=== PATIENT | male | born 1940 | race Caucasian/White ===

== ENCOUNTER → 2017-12-01 | Outpatient (CLI) | payer MEDICARE ==
[~2017-12-01] MED LIST: ALLO300T2 PO; ASPI81TA23 PO; ASPI81TA82 PO; CARV12.52 PO; CHOLMIS5 XX; CLOP75TA PO; COLC0.6T PO; COQ-100C5 PO; HYDR-3366 PO; LORT5TAB PO; NEXI40CA PO; PRAV40TA PO; TRIA37.5 PO; [UNRECOGNIZED DRUG - OTHER]
[2017-12-01 12:50] LABS: AUTOMATED NEUTROPHIL # 6.2 TH/MM3 (1.8-7.7); BASOPHIL # 0.1 TH/MM3 (0-0.2); BASOPHIL % 1.2 % (0.0-2.0); EOSINOPHIL # 0.4 TH/MM3 (0-0.4); EOSINOPHIL % 3.9 % (0.0-4.0); HEMATOCRIT 48.4 % (39.0-51.0); HEMOGLOBIN 16.3 GM/DL (13.0-17.0); LYMPH % 21.1 % (9.0-44.0); LYMPHOCYTE # 2.1 TH/MM3 (1.0-4.8); MEAN CELL VOLUME 91.5 FL (80.0-100.0); MEAN CORPUSCULAR HEMOGLOBIN 30.8 PG (27.0-34.0); MEAN CORPUSCULAR HGB CONC 33.7 % (32.0-36.0); MEAN PLATELET VOLUME 9.3 FL (7.0-11.0); MONO % 9.8 % (0.0-8.0); PLATELET COUNT 230 TH/MM3 (150-450); RED BLOOD COUNT 5.29 MIL/MM3 (4.50-5.90); RED CELL DISTRIBUTION WIDTH 14.6 % (11.6-17.2); WHITE BLOOD COUNT 9.8 TH/MM3 (4.0-11.0)
[2017-12-01 12:56] LABS: BILIRUBIN, URINE NEG (NEG); BLOOD, URINE NEG (NEG); GLUCOSE,URINE NEG (NEG); HYALINE CAST, URINE 1 /lpf (RARE); KETONE, URINE NEG (NEG); MUCUS URINE FEW /lpf (OCC); NITRITE,URINE NEG (NEG); URINE COLOR YELLOW (YELLW/STRAW); URINE LEUKOCYTE ESTERASE NEG (NEG)
[2017-12-01 12:58] LABS: PROTHROMBIN TIME - PATIENT 10.3 SEC (9.8-11.6)
[2017-12-01 13:58] LABS: AST (GOT) 35 U/L (15-37); BICARBONATE 24.9 MEQ/L (21.0-32.0); BLOOD UREA NITROGEN 17 MG/DL (7-18); CALCIUM 9.5 MG/DL (8.5-10.1); CHLORIDE 107 MEQ/L (98-107); CREATININE 1.14 MG/DL (0.60-1.30); GLOMERULAR FILTRATION RATE 62 ML/MIN (>89); GLUCOSE,FASTING 140 MG/DL (74-99); SODIUM (NA) 142 MEQ/L (136-145)
[2017-12-01 14:03] LABS: ALKALINE PHOSPHATASE 65 U/L (45-117); ALT (GPT) 53 U/L (12-78); TOTAL BILIRUBIN ADULT 0.4 MG/DL (0.2-1.0); TOTAL PROTEIN 8.2 GM/DL (6.4-8.2)
--- NOTE | 2017-12-01 22:50 | EKG ---
Date Performed: 12/01/2017 Time Performed: 12:15:00 PTAGE: 77 years EKG: Sinus rhythm POSSIBLE LEFT ATRIAL ENLARGEMENT LEFT ANTERIOR FASCICULAR BLOCK NONSPECIFIC T-WAVE ABNORMALITY ABNOR MAL ECG NO PREVIOUS TRACING DOCTOR: Hernan Simmons Interpretating Date/Time 12/01/2017 22:49:19
== END ==
LOC: CPRE 11:48
PROVIDERS: ATTEND Neurological Surgery
DX: Z01.812 Encounter for preprocedural laboratory examination (principal); Z01.810 Encounter for preprocedural cardiovascular examination; M48.062 Spinal stenosis, lumbar region with neurogenic claudication; M43.10 Spondylolisthesis, site unspecified; R94.31 Abnormal electrocardiogram [ECG] [EKG]; Z79.01 Long term (current) use of anticoagulants
CPT/HCPCS: 36415; 80053; 81001; 85025; 85610; 85730; 87640; 87641; 93005

== ENCOUNTER → 2017-12-03 | Day surgery (SDC) | payer MEDICARE ==
--- NOTE | 2017-12-02 18:36 | MH ---
cc: Merrill Kennedy MD, Rohit S PA [place],Alem Riojas MD, Ashraf S MD DATE OF ADMISSION: 12/03/2017 ADMITTING DIAGNOSIS: Lumbar spinal stenosis. HISTORY OF PRESENT ILLNESS: This is a 77-year-old male who presented to our office for an evaluation of low back pain and leg pain. He states that his pain started about 2-1/2 years ago and he was moving down to [place] and was unloading a [employer] trailer when he initially hurt his back. He states he had to do the move again and the pain was worse after the second time. He switched his insurance and was able to have more providers to choose from in his network and had coverage in [place] and he saw [facility] who obtained an MRI of his lumbar spine. He states he has previously been told he needed right hip surgery from an orthopedist and then saw an Orthopedic Clinic here in [place] who said it was not his hip and felt that it was coming from his back. He states he was referred to physical therapy, which made it worse, and he states that the pain got to the point where he can hardly walk. The pain radiates from the back into the posterior lower extremities, right more than the left, down to the lateral calf but not the feet. He sleeps on his right side and gets cramps in his calves. He has some tingling in his feet bilaterally. He states his feet hurt all the time. It feels like a squeezing type of pain. He states if he is sitting or lying down this helps with his pain. He states he cannot stand for more than 5 minutes. He states his legs can give out very quickly on him and he has to find a stool to sit down. He has had trigger point injections with his primary care physician, which only helped for a few hours. He has not been to pain management. He states he has urinary frequency and urgency and if he does not get to the bathroom in time, he does have some dribbling. He denies any reanna urinary incontinence. PAST MEDICAL HISTORY: Significant for abdominal aortic aneurysm, anxiety and depression, skin cancer, hyperlipidemia, sleep apnea, epigastric hernia repair, tonsillectomy, knee surgery in 2011 and 2012. MEDICATIONS: 1. Allopurinol 300 mg p.o. daily. 2. Aspirin 81 mg p.o. daily. This was placed on hold prior to surgical intervention. 3. Carvedilol 6.25 mg p.o. daily. 4. Plavix 75 mg p.o. daily. This was placed on hold prior to surgical intervention. 5. Colchicine 0.6 mg. 6. CoQ 10 p.o. daily. 7. [place] p.o. daily. 8. Nexium p.o. daily. 9. Pravastatin 40 mg p.o. daily. 10. Triamterene 37.5/Hydrochlorothiazide 25 mg p.o. daily. ALLERGIES: ALLERGIC TO LISTED PENICILLIN. FAMILY HISTORY: Father has a history of COPD. Mother has a history of cancer. Brother has a history of aortic aneurysm. SOCIAL HISTORY: He rarely drinks alcohol. He drinks a moderate amount of caffeine with coffee. He is a former smoker with 40 pack years. No illicit drug use. REVIEW OF SYSTEMS: CONSTITUTIONAL: He denies any fever or chills. EARS, NOSE AND THROAT: No pharyngitis, exudates or bloody draining from his nose CARDIOVASCULAR: Denies any chest pain or palpitations. RESPIRATORY: No cough or shortness of breath. GASTROINTESTINAL: No nausea, vomiting, abdominal pain. GENITOURINARY: No dysuria or hematuria. MUSCULOSKELETAL: Positive for low back pain. INTEGUMENTARY: No rashes or pruritus. No difficulty with speech or memory PSYCHIATRIC: Positive for anxiety and depression symptoms. ENDOCRINE: No polyuria or polydipsia. HEMATOLOGIC: Positive for bleeding tendencies related to Plavix and aspirin. PHYSICAL EXAMINATION: HEENT: Head is normocephalic, atraumatic. NECK: Supple. No carotid bruits heard on auscultation. LUNGS: Clear to auscultation bilaterally. HEART: Regular rate and rhythm, right sternal border heart murmur 2/6. ABDOMEN: Soft, positive bowel sounds. EXTREMITIES: No cyanosis, erythema. MUSCULOSKELETAL: He has 5/5 strength in the lower extremities. He ambulates without any assistive device, although he cannot walk more than 50 feet and uses a motorized wheelchair for longer distances. NEUROLOGIC: He is awake, alert, and oriented. Cranial nerves 2-12 are grossly intact. Her speech is fluent. Comprehension is good. Reflexes decreased in the left patella, otherwise 2+ in the lower extremities. He prefers to lean forward with walking and relates that his feet tend to drag when walking. ASSESSMENT: A 76-year-old obese male with a chronic history of low back pain with severe neurogenic claudication symptoms which has progressively gotten worse. He is unable to walk even half a block and states walking more than 50 to 60 feet is very difficult for him with worsening back pain and lower extremity pain and weakness in his legs. He has failed conservative treatment measures including physical therapy. MRI of the lumbar spine reveals severe L4/L5 spinal stenosis from a combination of disk protrusion and facet and ligamentum flavum hypertrophy along with grade 1 spondylolisthesis. PLAN: The patient and his are requesting surgical intervention, since he is very debilitated with his activity status and restrictions. We have discussed an L4/L5 decompressive laminectomy as well as the risks, benefits, alternatives, and recovery time in great detail with the patient and his . We have discussed the risks involved with surgery include, but not limited to bleeding, infection, muscle weakness, voice hoarseness, difficulty swallowing, heart attack, stroke, blood clots, nonfusion, scar tissue formation, among others. We have obtained cardiac clearance. He also understands that should his spondylolisthesis worsen in the future, he may require a stabilization type of procedure, which he wants to avoid at this point. No guarantees were made to the patient as to the results of the procedure. We have discussed the procedure and all of his questions were answered to his satisfaction. He is requesting that we proceed fully understanding the procedure as well as the risks involved and he is therefore scheduled accordingly. MD Adebayo Adorno PA RKK/ , 05:42 PM , 06:34 PM
[~2017-12-03] VITALS: Ht 171.4 cm; Wt 113.6 kg
[~2017-12-03] MED LIST changes: +APREPITANT 40 MG CAP ONE; -ASPI81TA82 PO; +BUPIVACAINE/EPINEPHRINE 0.5% PF 30 ML VIAL ONE; +CHLORHEXIDINE GLUCONATE 2 % 1 PACK (2 CLOTHS) TOPICAL PRN; -CHOLMIS5 XX; +DEXAMETHASONE SOD PHOS 4 MG/ML VIAL IV ONE; +DO NOT ADM ANY ANTICOAGULANT DRUGS PRN; +GELFOAM SIZE 100 ONE; +GLYCOPYRROLATE 1 MG/5 ML SYRINGE IV PUSH ONE; +INSULIN HUMAN REGULAR 1,000 UNITS/10 ML VIAL SQ PRN; +LACTATED RINGER'S 1000 ML IV PRN; +LIDOCAINE HCL 1% PF 5 ML SYRINGE OTHER ONE; -LORT5TAB PO; +METOPROLOL TARTRATE 25 MG TAB PO PRN; +MIDAZOLAM HCL 2 MG/2 ML VIAL ONE; +NEOSTIGMINE 5 MG/5 ML SYRINGE IV PUSH ONE; +ONDANSETRON HCL 4 MG/2 ML VIAL IV ONE; +POVIDONE IODINE 5% (ANTISEPSIS KIT) 4 APPLICATIONS EACH NARE PRN; +PROPOFOL 200 MG/20 ML AMP IV ONE; +ROCURONIUM INJ 50 MG/5 ML SYRINGE IV PUSH ONE; +SODIUM CHLOR 0.9% 1000 ML INJ 1,000 ML IV SCH; +SODIUM CHLORID 0.9% 500 ML IV PRN; +THROMBIN (TOPICAL) 5,000 UNIT VIAL ONE; +VANCOMYCIN 1 GM/200 ML PREMIX IV SCH; +VANCOMYCIN 500 MG VIAL ONE; +VANCOMYCIN HCL 1000 MG VIAL ONE; -[UNRECOGNIZED DRUG - OTHER]; +methylPREDNISolone ACETATE 40 MG/ML VIAL ONE
--- NOTE | 2017-12-03 12:40 | PD.OP ---
Nahum Lund MD Operative Report Date of Surgery: Dec 03, 2017 Preoperative Diagnosis: Lumbar L4-5 spinal stenosis from facet and ligamentum flavum hypertrophy with associated low back pain and neurogenic claudication Postoperative Diagnosis: Same Procedure: Bilateral lumbar L4 and L5 decompressive laminectomies with medial facetectomy; microsurgical technique Anesthesia: General endotracheal by Nieves daugherty Surgeon: Merrill Kennedy MD Globe Cleaner(s): Valerie Feldman Operation and Findings: Following administration of general endotracheal anesthesia, patient received vancomycin 1 g intravenously. Sequential compression devices were placed for DVT prophylaxis. He was then turned in prone position on Harry frame and the Sae table and all pressure points adequately padded. The lumbar region was then shaved and prepped with a Betadine and ChloraPrep. Sterile draping undertaken with Ioban. Midline incision overlying the L4-L5 levels was then made after infiltrating the skin with 0.5% Marcaine with epinephrine solution. The skin incision was made extending down through the fascia and then using the subperiosteal plane on the left side the muscular attachments to the spinous process and lamina were detached. Intraoperative fluoroscopy was used for level confirmation and further dissection undertaken using microtechnique with microscope magnification. The inferior portion of the left L4, and superior portion of the L5 lamina was then drilled out and the underlying ligamentum flavum also removed. The interspinous ligaments were preserved. There was significant facet arthropathy noted as well as severe spinal stenosis and the medial portion of L4-5 facet was also resected and the lateral recess decompressed. Epidural venous stasis which he with the bipolar cautery along with Gelfoam and thrombin and bone wax used at the laminotomy edges for hemostasis. The thecal sac was then gently retracted and the hypertrophied ligamentum flavum and medial portion of facet of the right side L4-5 were also resected for circumferential spinal canal decompression from L4-L5 levels bilaterally. The area was then copiously irrigated with vancomycin solution. Depo-Medrol 40 mg was also injected in the epidural space. The retractors removed and the muscle fascia proximal using 2-0 Vicryl interrupted stitches. 3 -0 Vicryl subcuticular stitches were also placed in an interrupted fashion and planned skin closure was with Mastisol and Steri-Strips. A sterile dressing was then applied and the patient then turned in the supine position and extubated and taken to recovery room in stable condition. There were no intraoperative complications and all sponge and needle count was correct at the end of the procedure. Estimated blood loss about 100 cc. Merrill Kennedy MD Dec 03, 2017 12:40
[2017-12-03 14:24] VITALS: BP 163/70; PULSE 63; RESP 16; TEMP 97.4; O2SAT 95
--- NOTE | 2017-12-03 17:38 | RADRPT ---
EXAM DATE: 12/03/2017 5:34 PM EDT AGE/SEX: 77 years / Male INDICATIONS: Level localization L4,L5. CLINICAL DATA: This is the patient's initial encounter. Patient reports that signs and symptoms have been present for 1 day and indicates a pain score of Nonresponsive. MEDICAL/SURGICAL HISTORY: None. None. COMPARISON: No prior exams available for comparison. FINDINGS: A single view of the spine was performed. Surgical intervention or directed towards the L3-4 level a nd the posterior aspect of L5. CONCLUSION: Localization as described above. Electronically signed by: Misha Leos MD 12/03/2017 5:36 PM EDT
== END | disposition home or self-care (01) ==
LOC: HSDC 05:55
PROVIDERS: ATTEND Neurological Surgery
DX: G47.30 Sleep apnea, unspecified (principal); E78.5 Hyperlipidemia, unspecified; M48.062 Spinal stenosis, lumbar region with neurogenic claudication; M79.669 Pain in unspecified lower leg; I71.4 Abdominal aortic aneurysm, without rupture; Z87.891 Personal history of nicotine dependence; G89.29 Other chronic pain; M54.5 Low back pain
CPT/HCPCS: 00630; 63047; 72020; 76000; J1030; J1100; J2250; J2405; J2710; J3010; J3370; J7120; J8501

== ENCOUNTER 2018-04-20 09:57 | Inpatient (IN) ==
--- NOTE | 2018-04-20 10:22 | ED ---
HPI General Chief Complaint: Stroke Alert Stated Complaint: Medical Complaint Time Seen by Provider: 04/20/18 10:02 History of Present Illness HPI Narrative: This is a 77-year-old male who was brought in as a stroke alert. He woke up this morning feeling fine. He is not entirely sure of the timing of the onset of symptoms. I have discussed it with the patient we have discussed it with paramedics. The best guess is that he knew he was talking fine at 8 and sometime shortly thereafter he started to slur his words. He had a right facial droop. He denies having motor weakness or sensory loss. He denies history of stroke. He does take Plavix daily. Severity is moderate. No alleviating factors. No exacerbating factors. Related Data Home Medications Medication Instructions Recorded Confirmed aspirin [Aspir-81] 81 mg PO DAILY 02/10/18 04/20/18 clopidogrel 75 mg PO DAILY 02/10/18 04/20/18 colchicine [Colcrys] 1.2 mg PO DAILY 02/10/18 04/20/18 triamterene-hydrochlorothiazid 1 cap PO DAILY 03/09/18 04/20/18 carvedilol 6.25 mg PO BID 03/12/18 04/20/18 coQ10 (ubiquinol) 100 mg PO BID 03/12/18 04/20/18 esomeprazole magnesium [Nexium] 40 mg PO DAILY 03/12/18 04/20/18 atorvastatin 40 mg PO DAILY 04/20/18 04/20/18 dapagliflozin-saxagliptin 1 tab PO QAM 04/20/18 04/20/18 febuxostat [Uloric] 40 mg PO DAILY 04/20/18 04/20/18 Allergies Allergy/AdvReac Type Severity Reaction Status Date / Time penicillin G Allergy Mild Hives Verified 04/20/18 10:41 Review of Systems ROS: all other systems reviewed are negative PMFSH Social History Social History Substance History: No History of Abuse Second Hand Smoke Exposure: No Smoking Status: Former smoker How Often Do You Have a Drink Containing Alcohol: Monthly or less Recent Travel in [facility] within the Last 8 Weeks: No Recent Out of Country Travel within the Last 8 Weeks: No Exam Narrative Exam Narrative: GENERAL: Well-nourished, well-developed patient in no apparent distress. SKIN: Focused skin assessment reveals no rash and nodules. Skin is Warm and dry. HEAD: Atraumatic. Normocephalic. EYES: Pupils equal and round. No scleral icterus. No injection or drainage. ENT: No nasal bleeding or discharge. Mucous membranes pink and moist. NECK: Trachea midline. No JVD. CARDIOVASCULAR: Regular rate and rhythm. No murmur appreciated. RESPIRATORY: No accessory muscle use. Clear to auscultation. Breath sounds equal bilaterally. GASTROINTESTINAL: Abdomen soft, non-tender, nondistended. Hepatic and splenic margins not palpable. MUSCULOSKELETAL: No obvious deformities. No clubbing. No cyanosis. No edema. NEUROLOGICAL: Awake and alert. I do not detect any facial droop. Motor grossly within normal limits. There is some slight slurring to his speech but it is understandable. He speaks in sentences. He is able to name objects and read sentences from a paper. PSYCHIATRIC: Appropriate mood and affect; insight and judgment normal. Course Initial Documented Vital Signs Temperature 98.2 F 04/20/18 10:28 Pulse Rate 80 04/20/18 10:28 Respiratory Rate 23 04/20/18 10:28 Blood Pressure 225/99 H 04/20/18 10:28 Pulse Oximetry 96 04/20/18 10:28 Last Documented Vital Signs Temperature 98.2 F 04/20/18 10:28 Pulse Rate 67 04/20/18 11:09 Respiratory Rate 13 04/20/18 11:09 Blood Pressure 175/78 H 04/20/18 11:09 Pulse Oximetry 99 04/20/18 11:09 Critical Care Time Critical Care Time: Yes Total Critical Care Time: 80 Attestation: Aggregate critical care time was 80 minutes. Time to perform other separately billable procedures was not included in the critical care time. My time did not include minutes spent treating any other patients simultaneously or on activities that did not directly contribute to the patient's treatment. The services I provided to this patient were to treat and/or prevent clinically significant deterioration that could result in: Permanent neurologic deficit, cardiopulmonary arrest, brain stem herniation I provided critical care services requiring my management, as noted below: Chart data review, documentation time, medication orders and management, vital sign assessments/reviewing monitor data, ordering and reviewing lab tests, ordering and interpreting/reviewing x-rays and diagnostic studies, care of the patient and discussion of the patient with the admitting physicians. Medical Decision Making MDM Narrative Medical decision making narrative: This is a 77-year-old male brought in as a stroke alert. Paramedics found him completely unable to speak and having a right facial droop. By the time I see him upon his arrival to the emergency room he is speaking in sentences and his droop has resolved. He still has some residual slurring. It is mild at this time. He is going to CT now. Blood pressure initially 225 systolic but on recheck is 184 systolic. Using permissive hypertension at this time in the face of possible acute ischemic CVA. If he does have intracranial hemorrhage we will lower this further. I discussed with Dr. Dykes. Will reassess upon return from CT. I have ordered the stroke protocol including CT of head and neck which Dr. Dykes is recommended. I reviewed with radiologist. His brain CT shows some chronic change but no acute hemorrhage. This patient has some partial obstruction of the left MCA M2 branch. Interventional radiologist has been working on it but it is not a candidate for acute removal. Dr. Dykes has determined the patient is not a candidate for TPA. He has had spinal surgery within 6 weeks which is an absolute contraindication to TPA. I gave the patient rectal aspirin and put the head of bed flat and started some low-dose IV fluid. Dr. Dykes has heparinized the patient. I reviewed with medical residents will admit. Medical Screen Exam Complete: Yes Emergency Medical Condition: Yes Differential Diagnosis Differential Diagnosis: Acute ischemic stroke, intracranial hemorrhage, TIA Medical Records Medical records reviewed: Yes I reviewed the patient's medical records. Lab Data Lab results reviewed: Yes I reviewed the patient's lab results. Lab results narrative: CBC is normal. I-STAT is normal Result diagrams: 04/20/18 10:00 Lab Results 04/20/18 04/20/18 04/20/18 Range/Units 10:00 10:00 10:00 WBC 10.4 (4.0-11.0) th/mm3 RBC 5.00 (4.50-5.90) mil/mm3 Hgb 15.7 (13.0-17.0) gm/dL POC Hgb (Calc) 16.0 (13.0-17.0) g/dL Hct 45.3 (39.0-51.0) % POC Hct 47.0 (39-51.0) % MCV 90.5 (80.0-100.0) fL MCH 31.5 (27.0-34.0) pg MCHC 34.8 (32.0-36.0) % RDW 14.6 (11.6-17.2) % Plt Count 187 (150-450) th/mm3 MPV 8.9 (7.0-11.0) fL Neut % (Auto) 65.7 (16.0-70.0) % Lymph % (Auto) 18.6 (9.0-44.0) % [place] % (Auto) 11.0 H (0.0-8.0) % Eos % (Auto) 3.8 (0.0-4.0) % Baso % (Auto) 0.9 (0.0-2.0) % Neut # (Auto) 6.8 (1.8-7.7) th/mm3 Lymph # (Auto) 1.9 (1.0-4.8) th/mm3 [place] # (Auto) 1.1 H (0.0-0.9) th/mm3 Eos # (Auto) 0.4 (0.0-0.4) th/mm3 Baso # (Auto) 0.1 (0.0-0.2) th/mm3 WBC Differential . Differential Comment Auto diff final PT 10.4 (9.8-11.6) sec INR 1.0 Ratio APTT 28.6 (23.4-31.7) sec Fibrinogen 439 H (227-377) mg/dL POC Sodium 142 (137-144) mmol/L POC Potassium 3.5 L (3.6-5.0) mmol/L POC Chloride 103 (102-111) mmol/L POC BUN 21 (5-21) mg/dL POC Creatinine 1.2 (0.6-1.3) mg/dL POC Glucose 113 H (68-110) mg/dL Urine Opiates Screen (Neg) Ur Barbiturates Screen (Neg) Ur Amphetamines Screen (Neg) U Benzodiazepines Scrn (Neg) Urine Cocaine Screen (Neg) U Cannabinoids Screen (Neg) 04/20/18 Range/Units 11:57 WBC (4.0-11.0) th/mm3 RBC (4.50-5.90) mil/mm3 Hgb (13.0-17.0) gm/dL POC Hgb (Calc) (13.0-17.0) g/dL Hct (39.0-51.0) % POC Hct (39-51.0) % MCV (80.0-100.0) fL MCH (27.0-34.0) pg MCHC (32.0-36.0) % RDW (11.6-17.2) % Plt Count (150-450) th/mm3 MPV (7.0-11.0) fL Neut % (Auto) (16.0-70.0) % Lymph % (Auto) (9.0-44.0) % [place] % (Auto) (0.0-8.0) % Eos % (Auto) (0.0-4.0) % Baso % (Auto) (0.0-2.0) % Neut # (Auto) (1.8-7.7) th/mm3 Lymph # (Auto) (1.0-4.8) th/mm3 [place] # (Auto) (0.0-0.9) th/mm3 Eos # (Auto) (0.0-0.4) th/mm3 Baso # (Auto) (0.0-0.2) th/mm3 WBC Differential Differential Comment PT (9.8-11.6) sec INR Ratio APTT (23.4-31.7) sec Fibrinogen (227-377) mg/dL POC Sodium (137-144) mmol/L POC Potassium (3.6-5.0) mmol/L POC Chloride (102-111) mmol/L POC BUN (5-21) mg/dL POC Creatinine (0.6-1.3) mg/dL POC Glucose (68-110) mg/dL Urine Opiates Screen Neg (Neg) Ur Barbiturates Screen Neg (Neg) Ur Amphetamines Screen Neg (Neg) U Benzodiazepines Scrn Neg (Neg) Urine Cocaine Screen Neg (Neg) U Cannabinoids Screen Neg (Neg) Imaging Data Attestation: I personally reviewed and interpreted this imaging study as follows : My impression: CT of the brain shows some chronic changes but no acute hemorrhage. CTA shows some clot in the left MCA. Radiologist's impression: Head CT 04/20/18 10:11 CONCLUSION: 1. Mild hypodense changes in the basal ganglia bilaterally which may represent chronic ischemic disease. 2. No characteristic findings of acute infarct, hemorrhage, mass or edema. 3. Aging brain with mild volume loss. Report given to ordering physician at 1021 Head CTA 04/20/18 10:11 CONCLUSION: 1. Partially occluding thrombus identified in a large M2 branch of the left middle cerebral artery at its bifurcation. 2. Overall decrease in vascularity in the left MCA distribution. 3. No evidence of ICA or M1 thrombi or occlusions. 4. Generalized atherosclerotic changes. 5. [id number] luminal irregularity and stenosis of the basilar artery. 6. High-grade stenosis with calcific deposits in the distal intracranial segment of the right vertebral artery. Report was called by [Dr. Glez to Dr. Timmons at 1055. Neck CTA 04/20/18 10:11 CONCLUSION: 1. Significant calcified plaque in the left carotid bifurcation with high- grade stenosis at the origin of the internal carotid artery measuring in the 50- 69% range. 2. No significant right carotid stenosis. 3. Dominant left vertebral artery. ECG Data EKG Prior to Arrival: No Attestation: I personally reviewed and interpreted this ECG as follows: Prior ECG tracings: not available for review Discharge Plan Discharge Disposition Patient Disposition: 30 Still Patient Discharge Details Diagnosis: Acute ischemic stroke Physicians Team ED Provider: Haja Timmons Primary Care Provider: UNKNOWN, Other Providers: Kaz Dykes ; Kaz Carcamo Rxs /Orders / Referrals /Forms Prescriptions: No Action atorvastatin 40 mg Tablet 40 mg PO DAILY RF: 0 febuxostat [Uloric] 40 mg Tablet 40 mg PO DAILY RF: 0 dapagliflozin-saxagliptin 10-5 mg Tablet 1 tab PO QAM RF: 0 clopidogrel 75 mg Tablet 75 mg PO DAILY RF: 0 aspirin [Aspir-81] 81 mg Tablet,Delayed Release (Dr/Ec) 81 mg PO DAILY RF: 0 colchicine [Colcrys] 0.6 mg Tablet 1.2 mg PO DAILY RF: 0 triamterene-hydrochlorothiazid 37.5-25 mg Capsule 1 cap PO DAILY RF: 0 carvedilol 6.25 mg Tablet 6.25 mg PO BID RF: 0 esomeprazole magnesium [Nexium] 40 mg Capsule,Delayed Release(Dr/Ec) 40 mg PO DAILY RF: 0 coQ10 (ubiquinol) 100 mg Capsule 100 mg PO BID RF: 0 Discharge Interventions Interventions: Vital Signs Last Done: 04/20/18 11:09 Status ED Status: With Doctor
--- NOTE | 2018-04-20 10:27 | CT ---
EXAM DATE: 04/20/2018 10:19 AM EST AGE/SEX: 77 years / Male INDICATIONS: Stroke alert, right sided weakness, slurred speech. CLINICAL DATA: This is the patient's initial encounter. Patient reports that signs and symptoms have been present for 1 day and indicates a pain score of Nonresponsive. MEDICAL/SURGICAL HISTORY: Non-responsive. Non-responsive. RADIATION DOSE: 52.83 CTDI (mGy) COMPARISON: No prior exams available for comparison. TECHNIQUE: CT of the head without contrast. Using automated exposure control and adjustment of the mA and/or kV according to patient size, radiation dose was kept as low as reasonably achievable to ob tain optimal diagnostic quality images. DICOM format image data is available electronically for revi ew and comparison. FINDINGS: Cerebrum: Patchy hypodensity is identified in the basal ganglia. There are no discrete or characteri stic findings of acute infarct or hemorrhage. There is no mass effect or edema. Mild prominence of the CSF spaces is noted. Posterior Fossa: The cerebellum and brainstem are intact. The 4th ventricle is midline. The cerebe llopontine angle is unremarkable. Extracranial: The visualized portion of the orbits is intact. Skull: The calvaria is intact. No evidence of skull fracture. CONCLUSION: 1. Mild hypodense changes in the basal ganglia bilaterally which may represent chronic ischemic dise ase. 2. No characteristic findings of acute infarct, hemorrhage, mass or edema. 3. Aging brain with mild volume loss. Report given to ordering physician at 1021 Electronically signed by: Van Glez MD 04/20/2018 10:25 AM EST
[2018-04-20 10:32] LABS: Activated Partial Thrombo Time 28.6 sec (23.4-31.7); Prothrombin Time 10.4 sec (9.8-11.6)
[2018-04-20 10:33] LABS: Baso # (Auto) 0.1 th/mm3 (0.0-0.2); Baso % (Auto) 0.9 % (0.0-2.0); Eos # (Auto) 0.4 th/mm3 (0.0-0.4); Eos % (Auto) 3.8 % (0.0-4.0); Hematocrit 45.3 % (39.0-51.0); Hemoglobin 15.7 gm/dL (13.0-17.0); Lymph # (Auto) 1.9 th/mm3 (1.0-4.8); Lymph % (Auto) 18.6 % (9.0-44.0); Mean Corpuscular HGB Conc 34.8 % (32.0-36.0); Mean Corpuscular Hemoglobin 31.5 pg (27.0-34.0); Mean Corpuscular Volume 90.5 fL (80.0-100.0); Mean Platelet Volume 8.9 fL (7.0-11.0); Mono # (Auto) 1.1 th/mm3 (0.0-0.9); Neut # (Auto) 6.8 th/mm3 (1.8-7.7); Neut % (Auto) 65.7 % (16.0-70.0); Platelet Count 187 th/mm3 (150-450); Red Cell Distribution Width 14.6 % (11.6-17.2); White Blood Count 10.4 th/mm3 (4.0-11.0)
[2018-04-20] MEDS ORDERED: Aspirin 300 MG Supp RECTAL ONE (11:17)
[2018-04-20] MEDS: Sod Chloride 0.9% Inj 1,000 ML IV.CONT SCH (11:20)
--- NOTE | 2018-04-20 11:26 | CT ---
EXAM DATE: 04/20/2018 10:42 AM EST AGE/SEX: 77 years / Male INDICATIONS: Stroke alert, right sided weakness, slurred speech. CLINICAL DATA: This is the patient's initial encounter. Patient reports that signs and symptoms have been present for 1 day and indicates a pain score of Nonresponsive. MEDICAL/SURGICAL HISTORY: Non-responsive. Non-responsive. RADIATION DOSE: 11.18 CTDI (mGy) ; Combined studies COMPARISON: [facility] [place], 04/20/2018. . TECHNIQUE: Volumetric scanning was performed using a multi-row detector CT scanner during bolus infu mary kay of 75 ml Visipaque 320 (iodixanol) nonionic water-soluble contrast as a cumulative dose for mul tiple exams. The data was post processed with a variety of visualization algorithms including full volume maximum intensity projection, multi-planar sliding thin slab reformation, curved planar reform ation, and surface rendering techniques. Using automated exposure control and adjustment of the mA a nd/or kV according to patient size, radiation dose was kept as low as reasonably achievable to obtain optimal diagnostic quality images. DICOM format image data is available electronically for review a nd comparison. FINDINGS: There is excellent visualization of the major intracranial arteries out to the second-order branch ve ssels. A partially obstructing intraluminal filling defect is identified in a prominent left-sided M2 branch at its bifurcation. Generalized decreased flow is identified throughout the left middle cerebral art sharlene branches. There are no proximal occlusive thrombi. Luminal irregularity characteristic of atherosclerotic disea se is noted. The moderate generalized narrowing and irregularity seen of the basilar artery. The left vertebral ar june is dominant. The distal right vertebral artery demonstrates calcific deposits in high-grade sten osis. CONCLUSION: 1. Partially occluding thrombus identified in a large M2 branch of the left middle cerebral artery a t its bifurcation. 2. Overall decrease in vascularity in the left MCA distribution. 3. No evidence of ICA or M1 thrombi or occlusions. 4. Generalized atherosclerotic changes. 5. [id number] luminal irregularity and stenosis of the basilar artery. 6. High-grade stenosis with calcific deposits in the distal intracranial segment of the right verteb ral artery. Report was called by [Dr. Glez to Dr. Timmons at 1055. Electronically signed by: Van Glez MD 04/20/2018 11:24 AM EST
--- NOTE | 2018-04-20 11:30 | CT ---
EXAM DATE: 04/20/2018 10:42 AM EST AGE/SEX: 77 years / Male INDICATIONS: Stroke alert, right sided weakness, slurred speech. CLINICAL DATA: This is the patient's initial encounter. Patient reports that signs and symptoms have been present for 1 day and indicates a pain score of Nonresponsive. MEDICAL/SURGICAL HISTORY: Non-responsive. Non-responsive. RADIATION DOSE: 11.18 CTDI (mGy) ; Combined studies COMPARISON: [facility], CTA CAROTID ARTERIES, 01/28/2017. . TECHNIQUE: Volumetric scanning was performed using a multirow detector CT scanner during bolus infus ion of 75 ml Visipaque 320 (iodixanol) nonionic water-soluble contrast as a cumulative dose for mult iple exams. The data was postprocessed with a variety of visualization algorithms including full-vo lume maximum intensity projection, multiplanar sliding thin-slab reformation, curved-planar reformati on, and surface-rendering techniques. Using automated exposure control and adjustment of the mA and/ or kV according to patient size, radiation dose was kept as low as reasonably achievable to obtain op timal diagnostic quality images. DICOM format image data is available electronically for review and comparison. FINDINGS: Aortic Arch: Moderate calcified plaque is seen along the aortic arch. There is no evidence of signif icant stenosis involving the origin of the great vessels. Right Carotid: The common carotid artery is intact. The carotid bulb has a normal configuration wit hout ulceration or narrowing. The internal carotid artery lumen is smooth without stenosis. The ext ernal carotid artery is intact. Left Carotid: Significant calcified plaque is identified in the left carotid bifurcation extending i nto the internal carotid artery. A high-grade stenosis is seen at the origin of the internal carotid artery measuring in the 50-69% range. Vertebrals: The left vertebral artery is dominant. Percent stenosis is calculated using the diameter of the stenotic region over the diameter of the nor mal distal internal carotid artery. CONCLUSION: 1. Significant calcified plaque in the left carotid bifurcation with high-grade stenosis at the orig in of the internal carotid artery measuring in the 50-69% range. 2. No significant right carotid stenosis. 3. Dominant left vertebral artery. Electronically signed by: Van Glez MD 04/20/2018 11:29 AM EST
[2018-04-20 12:17] LABS: Amphetamine Screen,Urine Neg (Neg); Barbiturate Screen,Urine Neg (Neg); Cannabinoid Screen,Urine Neg (Neg); Cocaine Screen,Urine Neg (Neg)
[2018-04-20 12:19] LABS: Opiate Screen,Urine Neg (Neg)
[2018-04-20] MEDS: Heparin Drip 25,000 UNIT/250 ML BAG IV.CONT PRN (12:45)
[2018-04-20 12:59] LABS: Chol/HDL Ratio 3.55 Ratio; HDL Cholesterol 40.5 mg/dL (40.0-60.0)
--- NOTE | 2018-04-20 13:10 | MB ---
cc: Kaz Dykes MD, PhD DATE: 04/20/2018 REASON FOR CONSULTATION: Stroke alert. HISTORY OF PRESENT ILLNESS: Mr. Linares is a 77-year-old man in his usual state of health until this morning when he suddenly developed difficulty getting words out. When he woke up this morning, he was feeling normal. He felt the symptoms began roughly half an hour before arrival to the ER. Last time normal was 8 a.m., according to the family. He did not have any motor weakness or sensory loss. He has no prior history of stroke. He does take Plavix 75 mg daily, aspirin 81 mg daily. PAST MEDICAL HISTORY: History of recent lumbar spine surgery 6 weeks ago and then a couple of months ago before that, history of GERD, gout, skin cancer, "leaky heart valve," prediabetes, sleep apnea, using CPAP device, hernia repair, left knee replacement surgery, right knee replacement surgery, cataract surgery, tonsillectomy. MEDICATIONS AT HOME: 1. Aspirin 81 mg daily. 2. Plavix 75 mg daily. 3. Colchicine. 4. Pravastatin. 5. Allopurinol. 6. Triamterene. 7. Carvedilol. 8. Coenzyme Q10. 9. Esomeprazole. 10. Tradjenta. 11. Tramadol 12. Hydrocodone as needed. ALLERGIES: PENICILLIN. NEUROLOGICAL EXAMINATION: VITAL SIGNS: His blood pressure is 162/72, pulse 65, respirations 17. HIGHER CORTICAL FUNCTIONS: At the present time, his speech is normal. He has minimal dysarthria, but normal fluency. No evidence of any aphasia. He follows commands well. There is no neglect. CRANIAL NERVES: 2-12 are normal. There is no facial droop. The pupils are equal and reactive. The extraocular movements are normal. MOTOR: He demonstrates 5/5 strength in all groups of both the upper and lower extremities. There is no drift. Fine motor skills normal. Reflexes are symmetric. SENSORY: Intact. CEREBELLAR TESTING: Normal. No dysmetria. NIH stroke scale upon presentation was 2. Currently, NIH stroke scale is zero. IMAGING DATA: CT brain, no acute changes found. There is chronic ischemic changes identified in the basal ganglia, mild atrophy. No evidence of any hemorrhage. CT angiogram of the brain shows partially occluded thrombus in a large M2 branch on the left side, overall decrease in vascularity in the left MCA distribution, generalized atherosclerosis identified, mild irregularity of the basilar artery. High-grade stenosis is seen in the distal segment of the right vertebral artery. A CTA of the neck shows 50% to 69% stenosis of the left internal carotid artery. Right carotid is normal. Dominant left vertebral is seen. LABORATORY DATA: White count 10,400, hemoglobin 15.7, hematocrit 45.3%, platelet count 187,000. PT 10.4, INR 1, aPTT 28.6. Sodium 142, potassium 3.5, chloride 103, BUN 21, creatinine 1.2, glucose 113. Telemetry strip shows sinus rhythm. IMPRESSION: Left hemisphere transient ischemic attack, which appears to be resolved at the present time. His NIH stroke scale currently is zero, whereas when he came in, it was calculated as a 2, so there is definite improvement. The patient is not a candidate for intravenous tPA because of the recent spinal surgery within 6 weeks. Current guidelines indicate intraspinal surgery within 3 months as a contraindication. I discussed the case with interventional radiology in reference to the left M2 thrombus. They report that this is too distal to be extracted. Particularly, in view of the fact that the patient has resolved his symptoms, the risks would be far greater than any potential benefit. At the present time, because of the thrombus in the M2 segment, we would like to start him on intravenous heparin with no boluses. We will also monitor cardiac telemetry to rule out atrial fibrillation. We will also check an echocardiogram to rule out a cardiac embolic source. The left carotid stenosis is marginal. We will ask for vascular surgery's opinion regarding this, however. We will also check a lipid panel. We will get an MRI of the brain for further evaluation. Thank you for asking me to see this pleasant patient. Kaz Dykes MD, PhD SUMAN/bishop , 12:19 PM , 12:32 PM
--- NOTE | 2018-04-20 13:18 | P.HPFP ---
History of Present Illness Primary Care Physician: UNKNOWN <Noe Shah - 04/21/18 13:04> UNKNOWN <Maye Cho - 04/20/18 13:17> Chief Complaint: slurred speech <Maye Cho - 04/20/18 18:34> History of Present Illness: 77-year-old male brought via [facility] after his found him in bed with slurred speech. He was brought in as a stroke alert. reports the patient woke up this morning feeling okay. He ate breakfast with his per usual and took his medications. He laid down for a nap. reports that she went to wake him up and he was slurring his words and not speaking coherently. and patient deny a right facial droop but per ED physician's record this was present. There was no loss of consciousness, no loss of bowel or bladder. The patient denies extremity numbness or tingling. He had no change in vision. Patient does take aspirin and clopidogrel daily. reports that his blood pressure has been well controlled at home in the 140s/80s. PMH: GERD HTN Hyperlipidemia Gout Prediabetes PSH: tonsillectomy epigastric hernia Bilateral total knee replacements knee repair Bilateral cataract surgery back surgery Allergy: PCN Family history: Mother with colon cancer PCP: Nahum Arroyo <aMye Cho - 04/20/18 19:04> - Diagnosis (1) Transient ischemic attack (TIA) (2) GERD (gastroesophageal reflux disease) (3) Leaky heart valve (4) Gout (5) Prediabetes (6) Sleep apnea (7) DVT prophylaxis (8) Nutrition, metabolism, and development symptoms <Maye Cho - 04/20/18 19:13> Inpatient Certification: I certify that the inpatient services were ordered in accordance with Medicare regulations governing the order. This includes certification that hospital inpatient services are reasonable and necessary and in the case of services not specified as inpatient-only under 42 CFR 419.22(n), that they are appropriately provided as inpatient services in accordance to with the 2-midnight benchmark under 43 CFR 412.3(e) <Noe Shah - 04/21/18 13:04> Review of Systems Constitutional: Denies chills <Bhavin Chosha A - 04/20/18 13:17> Eyes: Denies blurry vision <TammieMaye Gale - 04/20/18 13:17> Ears, Nose, Mouth, and Throat: Denies abnormal hearing <TammieMaye Gale - 13:17> Cardiovascular: Denies chest pain <TammieMaye Gale - 04/20/18 13:17> Respiratory: Denies cough <TammieMaye Gale 04/20/18 13:17> Gastrointestinal: Denies abdominal pain, Denies black, tarry stools <Tammie Maye Gale - 04/20/18 13:17> Genitourinary: Denies painful urination <TammieMaye Gale 04/20/18 13:17> Musculoskeletal: Reports back pain (s/p back surgery) <TammieMaye Gale - 10/31 13:17> Skin/Breast: Denies rash <TammieMaye Gale 04/20/18 13:17> Neurologic: Denies abnormal hearing, Denies headache(s), Denies tingling/ numbness/burning sensations, Denies tremor(s) <TammieMaye Gale 04/20/18 13 :17> Hematologic/Lymphatic: Reports easy bleeding <TammieMaye Gale - 04/20/18 13: 17> PMFSH - History History Provided By: Patient <TammieMaye Gale - 04/20/18 13:17> - Medical History Medical History: Medical History (Last Reviewed 04/20/18 @ 11:04 by Kasia Dos Santos RN) Full dentures GERD (gastroesophageal reflux disease) Gout Hearing aid worn History of skin cancer Leaky heart valve Pre-diabetes Sleep apnea with use of continuous positive airway pressure (CPAP) <Noe Shah - 04/21/18 13:04> Medical History (Last Reviewed 04/20/18 @ 11:04 by Kasia Dos Santos RN) Full dentures GERD (gastroesophageal reflux disease) Gout Hearing aid worn History of skin cancer Leaky heart valve Pre-diabetes Sleep apnea with use of continuous positive airway pressure (CPAP) <Maye Cho - 04/20/18 13:17> - Surgical History Surgical History: Surgical History (Last Reviewed 04/20/18 @ 11:04 by Kasia Dos Santos RN) History of back surgery History of hernia repair History of total left knee replacement History of total right knee replacement Hx of cataract surgery Hx of tonsillectomy <Noe Shah - 04/21/18 13:04> Surgical History (Last Reviewed 04/20/18 @ 11:04 by Kasia Dos Santos RN) History of back surgery History of hernia repair History of total left knee replacement History of total right knee replacement Hx of cataract surgery Hx of tonsillectomy <Maye Cho - 04/20/18 13:17> - Tobacco History Second Hand Smoke Exposure: No <Maye Cho - 04/20/18 13:17> Smoking Status: Former smoker <Maye Cho - 04/20/18 13:17> - Alcohol History How Often Do You Have a Drink Containing Alcohol: Monthly or less <Maye Cho - 04/20/18 13:17> - Substance Use History Substance History: No History of Abuse <Maye Cho - 04/20/18 13:17> - Travel History Recent Travel in the [facility] Within the Last 8 Weeks: No <Maye Cho - 10/31 13:17> Recent Travel Out of the Country Within the Last 8 Weeks: No <Maye Cho - 04/20/18 13:17> - Immunization History Tetanus Immunization: Unsure <Maye Cho - 04/20/18 13:17> Medications and Allergies Allergies Allergy/AdvReac Type Severity Reaction Status Date / Time penicillin G Allergy Mild Hives Verified 04/20/18 10:41 <Noe Shah - 04/21/18 13:04> Home Medications Medication Instructions Recorded Confirmed Type aspirin [Aspir-81] 81 mg PO DAILY 02/10/18 04/20/18 History clopidogrel 75 mg PO DAILY 02/10/18 04/20/18 History colchicine [Colcrys] 1.2 mg PO DAILY 02/10/18 04/20/18 History triamterene-hydrochlorothiazid 1 cap PO DAILY 03/09/18 04/20/18 History carvedilol 6.25 mg PO BID 03/12/18 04/20/18 History coQ10 (ubiquinol) 100 mg PO BID 03/12/18 04/20/18 History esomeprazole magnesium [Nexium] 40 mg PO DAILY 03/12/18 04/20/18 History atorvastatin 40 mg PO DAILY 04/20/18 04/20/18 History dapagliflozin-saxagliptin 1 tab PO QAM 04/20/18 04/20/18 History febuxostat [Uloric] 40 mg PO DAILY 04/20/18 04/20/18 History <Noe Shah - 04/21/18 13:04> Active Medications: Active Medications Al Hydroxide/Mg Hydroxide (Milk Of Magnesia Liq) 30 ml PO Q12H PRN PRN Reason: Mild Constipation Aspirin (Ecotrin) 81 mg PO DAILY [facility] Atorvastatin Calcium (Lipitor) 40 mg PO DAILY [facility] Bisacodyl (Dulcolax Supp) 10 mg RECTAL DAILY PRN PRN Reason: SEVERE CONSITIPATION Carvedilol (Coreg) 6.25 mg PO BID [facility] Last Admin: 04/20/18 20:40 Dose: 6.25 mg Clopidogrel Bisulfate (Plavix) 75 mg PO DAILY [facility] Dextrose (D50w Vial) 50 ml IV.PUSH UNSCH PRN PRN Reason: PER HYPOGLYCEMIA PROTOCOL Glucagon (Glucagon Inj) 1 mg OTHER PRN PRN PRN Reason: for Hypoglycemia Protocol Sodium Chloride (Ns Inj) 1,000 mls @ 70 mls/hr IV.CONT .[id number] [facility] Last Admin: 04/21/18 00:40 Dose: 70 mls/hr Heparin Sodium/Dextrose (Heparin/D5w 25,000 U/250 Ml) 25,000 unit in 250 mls @ 0 mls/hr IV.CONT TITRATE PRN; Protocol PRN Reason: Per Protocol Last Admin: 04/21/18 06:15 Dose: 1,300 units/hr, 13 mls/hr Insulin Aspart (Novolog Insulin Correctional Sugar Inj) 0 unit SQ ACHS AND 3AM [facility]; Protocol Last Admin: 04/21/18 12:42 Dose: Not Given Lactulose (Lactulose Liq) 30 ml PO DAILY PRN PRN Reason: SEVERE CONSITIPATION Pantoprazole Sodium (Protonix) 40 mg PO DAILY [facility] Sennosides (Senokot) 17.2 mg PO Q12H PRN PRN Reason: Moderate Constipation <Noe Shah - 04/21/18 13:04> Active Medications Sodium Chloride (Ns Inj) 1,000 mls @ 70 mls/hr IV.CONT .[id number] [facility] Last Admin: 04/20/18 11:20 Dose: 70 mls/hr Heparin Sodium/Dextrose (Heparin/D5w 25,000 U/250 Ml) 25,000 unit in 250 mls @ 0 mls/hr IV.CONT TITRATE PRN; Protocol PRN Reason: Per Protocol Last Admin: 04/20/18 12:45 Dose: 1,200 units/hr, 12 mls/hr <Maye Cho - 04/20/18 13:17> Exam Vital signs: Vital Signs 04/20/18 13:48 04/20/18 14:00 04/20/18 15:00 Temperature Pulse Rate 62 56 L 62 Respiratory Rate 23 23 25 H Blood Pressure 160/74 H 189/79 H 160/74 H Pulse Oximetry 96 99 98 04/20/18 16:45 04/20/18 20:00 04/20/18 20:41 Temperature 97.9 F 98.4 F Pulse Rate 60 64 66 Respiratory Rate 20 19 Blood Pressure 155/92 H 151/65 H Pulse Oximetry 99 95 04/21/18 00:00 04/21/18 03:29 04/21/18 08:09 Temperature 98.1 F 98.5 F Pulse Rate 60 57 L Respiratory Rate 17 19 Blood Pressure 158/67 H 143/66 H Pulse Oximetry 95 96 97 04/21/18 11:48 04/21/18 12:01 04/21/18 12:30 Temperature 98.2 F Pulse Rate 67 65 Respiratory Rate 18 Blood Pressure 148/68 H Pulse Oximetry 97 97 04/21/18 13:02 Temperature Pulse Rate 66 Respiratory Rate 16 Blood Pressure Pulse Oximetry 97 Intake & Output 04/20/18 04/21/18 04/21/18 18:59 06:59 18:59 Intake Total 1350 / 1350 Output Total 300 / 300 525 / 525 Balance -300 / -300 1350 / 1350 -525 / -525 Weight 110.8 kg Intake: IV 1250 / 1250 Heparin/D5W 25,000 U/250 mL 25, 250 / 250 000 unit In 250 ml @ Per Protocol IV.CONT TITRATE PRN Rx #:[id number] NS Inj 1,000 ML @ 70 mls/hr IV. 1000 / 1000 CONT .[id number] [facility] Rx#:[id number] Oral 100 / 100 Output: Urine 300 / 300 525 / 525 Other: # Voids 3 2 Weight On Admission 110.8 kg <Noe Shah - 04/21/18 13:04> Vital Signs 04/20/18 10:28 04/20/18 10:33 04/20/18 10:39 Temperature 98.2 F Pulse Rate 80 65 Respiratory Rate 23 17 Blood Pressure 225/99 H 167/72 H Pulse Oximetry 96 96 97 04/20/18 11:09 Temperature Pulse Rate 67 Respiratory Rate 13 Blood Pressure 175/78 H Pulse Oximetry 99 Intake & Output 04/19/18 04/20/18 04/20/18 18:59 06:59 18:59 Weight 110.8 kg <Maye Cho - 04/20/18 13:17> Results - Labs Result diagrams: 04/21/18 02:16 04/21/18 02:16 <Noe Shah - 04/21/18 13:04> Abnormal lab results 04/20/18 04/20/18 04/20/18 Range/Units 16:30 20:11 20:41 [place] % (Auto) (0.0-8.0) % Eos % (Auto) (0.0-4.0) % [place] # (Auto) (0.0-0.9) th/mm3 Eos # (Auto) (0.0-0.4) th/mm3 APTT 38.3 H D 41.3 H (23.4-31.7) sec BUN (7-18) mg/dL Estimated GFR (>89) mL/min POC Glucose 174 H (68-110) mg/dl Random Glucose (74-106) mg/dL Albumin (3.4-5.0) g/dL 04/21/18 04/21/18 04/21/18 Range/Units 02:16 02:16 02:16 [place] % (Auto) 10.6 H (0.0-8.0) % Eos % (Auto) 5.5 H (0.0-4.0) % [place] # (Auto) 1.2 H (0.0-0.9) th/mm3 Eos # (Auto) 0.6 H (0.0-0.4) th/mm3 APTT 46.0 H (23.4-31.7) sec BUN 20 H (7-18) mg/dL Estimated GFR 55 L (>89) mL/min POC Glucose (68-110) mg/dl Random Glucose 129 H (74-106) mg/dL Albumin 3.1 L (3.4-5.0) g/dL 04/21/18 04/21/18 04/21/18 Range/Units 08:07 12:27 12:38 [place] % (Auto) (0.0-8.0) % Eos % (Auto) (0.0-4.0) % [place] # (Auto) (0.0-0.9) th/mm3 Eos # (Auto) (0.0-0.4) th/mm3 APTT 42.7 H (23.4-31.7) sec BUN (7-18) mg/dL Estimated GFR (>89) mL/min POC Glucose 192 H 149 H (68-110) mg/dl Random Glucose (74-106) mg/dL Albumin (3.4-5.0) g/dL Short CBC 04/20/18 04/21/18 Range/Units 16:30 02:16 WBC 10.3 10.8 (4.0-11.0) th/mm3 Hgb 15.3 15.2 (13.0-17.0) gm/dL Hct 44.9 44.7 (39.0-51.0) % Plt Count 179 182 (150-450) th/mm3 BMP 04/21/18 02:16 Sodium 141 Potassium 3.5 Chloride 103 Carbon Dioxide 28.8 BUN 20 H Creatinine 1.27 Calcium 9.0 Liver Function 04/21/18 Range/Units 02:16 Total Bilirubin 0.3 (0.2-1.0) mg/dL AST 28 (15-37) U/L ALT 43 (12-78) U/L Alkaline Phosphatase 73 (45-117) U/L Albumin 3.1 L (3.4-5.0) g/dL <Noe Shah - 04/21/18 13:04> Abnormal lab results 04/20/18 04/20/18 04/20/18 Range/Units 10:00 10:00 10:00 [place] % (Auto) 11.0 H (0.0-8.0) % [place] # (Auto) 1.1 H (0.0-0.9) th/mm3 Fibrinogen 439 H (227-377) mg/dL POC Potassium 3.5 L (3.6-5.0) mmol/L POC Glucose 113 H (68-110) mg/dL Triglycerides (42-150) mg/dL 04/20/18 Range/Units 10:00 [place] % (Auto) (0.0-8.0) % [place] # (Auto) (0.0-0.9) th/mm3 Fibrinogen (227-377) mg/dL POC Potassium (3.6-5.0) mmol/L POC Glucose (68-110) mg/dL Triglycerides 249 H (42-150) mg/dL Short CBC 04/20/18 Range/Units 10:00 WBC 10.4 (4.0-11.0) th/mm3 Hgb 15.7 (13.0-17.0) gm/dL Hct 45.3 (39.0-51.0) % Plt Count 187 (150-450) th/mm3 <Maye Cho - 04/20/18 13:17> - Imaging Impressions Head MRI 04/20/18 00:00 CONCLUSION: 1. No evidence of acute infarct, hemorrhage, mass or edema 2. No evidence of enhancing lesions. <Noe Shah - 04/21/18 13:04> Impressions Head CT 04/20/18 10:11 CONCLUSION: 1. Mild hypodense changes in the basal ganglia bilaterally which may represent chronic ischemic disease. 2. No characteristic findings of acute infarct, hemorrhage, mass or edema. 3. Aging brain with mild volume loss. Report given to ordering physician at 1021 Head CTA 04/20/18 10:11 CONCLUSION: 1. Partially occluding thrombus identified in a large M2 branch of the left middle cerebral artery at its bifurcation. 2. Overall decrease in vascularity in the left MCA distribution. 3. No evidence of ICA or M1 thrombi or occlusions. 4. Generalized atherosclerotic changes. 5. [id number] luminal irregularity and stenosis of the basilar artery. 6. High-grade stenosis with calcific deposits in the distal intracranial segment of the right vertebral artery. Report was called by [Dr. Glez to Dr. Timmons at 1055. Neck CTA 04/20/18 10:11 CONCLUSION: 1. Significant calcified plaque in the left carotid bifurcation with high- grade stenosis at the origin of the internal carotid artery measuring in the 50- 69% range. 2. No significant right carotid stenosis. 3. Dominant left vertebral artery. <Maye Cho - 04/20/18 13:17> Caprini VTE Risk Assessment Caprini VTE Risk Assessment: Moderate/High Risk (score >= 2) <Maye Cho - 04/20/18 19:35> Caprini Risk Assessment Model: Point Value = 1 Point Value = 2 Point Value = 3 Point Value = 5 Age 41-60 Minor surgery BMI > 25 kg/m2 Swollen legs Varicose veins or History of unexplained or recurrent spontaneous Oral contraceptives or hormone replacement Sepsis (< 1 month) Serious lung disease, including pneumonia (< 1 month) Abnormal pulmonary function Acute myocardial infarction Congestive heart failure (< 1 month) History of inflammatory bowel disease Medical patient at bed rest Age 61-74 Arthroscopic surgery Major open surgery (> 45 min) Laparoscopic surgery (> 45 min) Malignancy Confined to bed (> 72 hours) Immobilizing plaster cast Central venous access Age >= 75 History of VTE Family history of VTE Factor V Leiden Prothrombin [id number] Lupus anticoagulant Anticardiolipin antibodies Elevated serum homocysteine Heparin-induced thrombocytopenia Other congenital or acquired thrombophilia Stroke (< 1 month) Elective arthroplasty Hip, pelvis, or leg fracture Acute spinal cord injury (< 1 month) <Noe Shah - 04/21/18 13:04> Point Value = 1 Point Value = 2 Point Value = 3 Point Value = 5 Age 41-60 Minor surgery BMI > 25 kg/m2 Swollen legs Varicose veins or History of unexplained or recurrent spontaneous Oral contraceptives or hormone replacement Sepsis (< 1 month) Serious lung disease, including pneumonia (< 1 month) Abnormal pulmonary function Acute myocardial infarction Congestive heart failure (< 1 month) History of inflammatory bowel disease Medical patient at bed rest Age 61-74 Arthroscopic surgery Major open surgery (> 45 min) Laparoscopic surgery (> 45 min) Malignancy Confined to bed (> 72 hours) Immobilizing plaster cast Central venous access Age >= 75 History of VTE Family history of VTE Factor V Leiden Prothrombin [id number] Lupus anticoagulant Anticardiolipin antibodies Elevated serum homocysteine Heparin-induced thrombocytopenia Other congenital or acquired thrombophilia Stroke (< 1 month) Elective arthroplasty Hip, pelvis, or leg fracture Acute spinal cord injury (< 1 month) <Maye Cho - 04/20/18 13:17> Prophylaxis Regimen: Total Risk Factor Score Risk Level Prophylaxis Regimen 0-1 Low Early ambulation 2 Moderate Order ONE of the following: *Sequential Compression Device (SCD) *Heparin 5000 units SQ BID 3-4 Higher Order ONE of the following medications: *Heparin 5000 units SQ TID *Enoxaparin/Lovenox 40 mg SQ daily (WT < 150 kg, CrCl > 30 mL/min) *Enoxaparin/Lovenox 30 mg SQ daily (WT < 150 kg, CrCl > 10-29 mL/min) *Enoxaparin/Lovenox 30 mg SQ BID (WT < 150 kg, CrCl > 30 mL/min) AND/OR *Sequential Compression Device (SCD) 5 or more Highest Order ONE of the following medications: *Heparin 5000 units SQ TID (Preferred with Epidurals) *Enoxaparin/Lovenox 40 mg SQ daily (WT < 150 kg, CrCl > 30 mL/min) *Enoxaparin/Lovenox 30 mg SQ daily (WT < 150 kg, CrCl > 10-29 mL/min) *Enoxaparin/Lovenox 30 mg SQ BID (WT < 150 kg, CrCl > 30 mL/min) AND *Sequential Compression Device (SCD) <Noe Shah - 04/21/18 13:04> Total Risk Factor Score Risk Level Prophylaxis Regimen 0-1 Low Early ambulation 2 Moderate Order ONE of the following: *Sequential Compression Device (SCD) *Heparin 5000 units SQ BID 3-4 Higher Order ONE of the following medications: *Heparin 5000 units SQ TID *Enoxaparin/Lovenox 40 mg SQ daily (WT < 150 kg, CrCl > 30 mL/min) *Enoxaparin/Lovenox 30 mg SQ daily (WT < 150 kg, CrCl > 10-29 mL/min) *Enoxaparin/Lovenox 30 mg SQ BID (WT < 150 kg, CrCl > 30 mL/min) AND/OR *Sequential Compression Device (SCD) 5 or more Highest Order ONE of the following medications: *Heparin 5000 units SQ TID (Preferred with Epidurals) *Enoxaparin/Lovenox 40 mg SQ daily (WT < 150 kg, CrCl > 30 mL/min) *Enoxaparin/Lovenox 30 mg SQ daily (WT < 150 kg, CrCl > 10-29 mL/min) *Enoxaparin/Lovenox 30 mg SQ BID (WT < 150 kg, CrCl > 30 mL/min) AND *Sequential Compression Device (SCD) <Maye Cho - 04/20/18 13:17> Assessment and Plan - Assessment (1) Transient ischemic attack (TIA) Code(s): G45.9 - Transient cerebral ischemic attack, unspecified Status: Acute Plan: 77-year-old male with a transient ischemic attack who has a partially occluding thrombus in the left middle cerebral artery and left carotid stenosis of 50-69%. -Consult neurology appreciate recommendations -Cardiac telemetry to rule out A. fib -Echocardiogram -MRI brain- NEGATIVE -Allow permissive hypertension -Consult vascular surgery appreciate recommendations -Consult physical therapy -Consult speech therapy Medications: -Continue atorvastatin -Continue heparin drip Laboratory: -Lipid panel * Triglycerides 249 * Cholesterol 144 * LDL cholesterol 54 * HDL cholesterol 40.5 - PT/INR WNL - CBC WNL - BMP grossly WNL (2) GERD (gastroesophageal reflux disease) Code(s): K21.9 - Gastro-esophageal reflux disease without esophagitis Status: Acute Plan: -Hold home Nexium -Start pantoprazole 40 mg p.o. daily (3) Leaky heart valve Code(s): I38 - Endocarditis, valve unspecified Status: Acute Plan: -Continue home carvedilol 6.25 mg p.o. twice daily -Hold home triamterene-hydrochlorothiazide (4) Gout Code(s): M10.9 - Gout, unspecified Status: Acute Plan: -Hold home Uloric and colchicine (5) Prediabetes Code(s): R73.03 - Prediabetes Status: Acute Plan: -Hold home dapagliflozin-saxagliptin -Start Low-dose sliding scale insulin (6) Sleep apnea Code(s): G47.30 - Sleep apnea, unspecified Status: Acute Plan: Patient has a CPAP at home but according to is noncompliant with CPAP. -monitor (7) DVT prophylaxis Status: Acute Plan: -Patient is currently on heparin drip - Continue Plavix - Continue Aspirin 81 mg (8) Nutrition, metabolism, and development symptoms Code(s): R63.8 - Other symptoms and signs concerning food and fluid intake Status: Acute Plan: - NS @ 70 mls/hr - Patient passed nurse bedside swallow: cardiac diet <Maye Cho - 04/20/18 19:13> - Attending Attestation See the residents documentation for details. I saw and evaluated the patient regarding the harrell portions of this evaluation and agree with the residents findings and plans as written. Parts of this note were created using [email or web address] voice recognition software program. While efforts were made to correct any mistakes made by this software, some mistakes, errors, and omissions may remain in the final note that were not caught when the note was originally created. Plan of care was discussed and agreed upon with the patient as specifically documented in the above note. An opportunity to ask questions with explanation was provided. Patient voiced understanding on all information reviewed and discussed. <Noe Shah - 04/21/18 13:04>
[2018-04-20] MEDS ORDERED: Bisacodyl 10 MG Supp RECTAL PRN (13:47)
[2018-04-20] MEDS ORDERED: Dextrose 50% in Water 50 ML Vial IV.PUSH PRN (14:06)
[2018-04-20] MEDS ORDERED: Gadobutrol PF 10 MMOL/10 ML Vial (for RAD) IV.SIG ONE (14:46)
--- NOTE | 2018-04-20 15:00 | MR ---
EXAM DATE: 04/20/2018 2:44 PM EST AGE/SEX: 77 years / Male INDICATIONS: Left sided weakness. Aphasia. CLINICAL DATA: This is the patient's initial encounter. Patient reports that signs and symptoms have been present for 2 days and indicates a pain score of 0/10. MEDICAL/SURGICAL HISTORY: Hypertension. Gastroesophageal reflux disease. Tonsillectomy. Fusio n, lumbar. Bilateral knee replacements. COMPARISON: [facility] – [place], CT HEAD W/O CONTRAST, 04/20/2018. . TECHNIQUE: Multiplanar, multisequence examination of the brain was performed without and with 11 ml G adavist (gadobutrol) contrast as a single exam dose. FINDINGS: Cerebrum: The ventricles are normal for age. No evidence of midline shift, mass lesion, hemorrhage or acute infarction. No extraaxial fluid collections are seen. The pituitary gland and suprasellar cistern are normal in configuration. White Matter: No significant signal abnormalities are seen in the white matter. Posterior Fossa: The cerebellum and brainstem are intact. The 4th ventricle is midline. The cerebel lopontine angle is unremarkable. The cerebellar tonsils are normal in position. Diffusion Imaging: No focal areas of restricted diffusion are seen. No evidence of acute infarction . Extracranial: The visualized portions of the orbits and paranasal sinuses are unremarkable. Post Contrast: No abnormal areas of parenchymal or dural enhancement. No evidence of blood-brain ba rrier breakdown. CONCLUSION: 1. No evidence of acute infarct, hemorrhage, mass or edema 2. No evidence of enhancing lesions. Electronically signed by: Van Glez MD 04/20/2018 2:58 PM EST
[2018-04-20 16:41] LABS: Hematocrit 44.9 % (39.0-51.0); Hemoglobin 15.3 gm/dL (13.0-17.0); Mean Corpuscular HGB Conc 34.2 % (32.0-36.0); Mean Corpuscular Hemoglobin 31.6 pg (27.0-34.0); Mean Corpuscular Volume 92.6 fL (80.0-100.0); Mean Platelet Volume 8.5 fL (7.0-11.0); Platelet Count 179 th/mm3 (150-450); Red Blood Count 4.85 mil/mm3 (4.50-5.90); Red Cell Distribution Width 14.8 % (11.6-17.2); White Blood Count 10.3 th/mm3 (4.0-11.0)
[2018-04-20 16:52] LABS: Activated Partial Thrombo Time 38.3 sec (23.4-31.7); Prothrombin Time 10.3 sec (9.8-11.6)
[2018-04-20] MEDS: Insulin NovoLOG Aspart Correctional Sugar Inj SQ SCH ×2 (18:18→20:41)
[2018-04-20] MEDS: Carvedilol 6.25 MG Tablet PO SCH (20:40)
--- NOTE | 2018-04-20 20:49 | ECG ---
Date Performed: 04/20/2018 Time Performed: 11:17:01 PTAGE: 77 years EKG: Sinus rhythm POSSIBLE LEFT ATRIAL ENLARGEMENT LEFT ANTERIOR FASCICULAR BLOCK POSSIBLE LEFT VENTRICULAR HYPERTROPH Y NONSPECIFIC T-WAVE ABNORMALITY ABNORMAL ECG PREVIOUS TRACING : 04/20/2018 11.12 Since the previous tracing, no significant change noted DOCTOR: Prashant Chan Interpretating Date/Time 04/20/2018 20:48:01
[2018-04-21] MEDS: Sod Chloride 0.9% Inj 1,000 ML IV.CONT SCH ×2 (00:40→14:40)
[2018-04-21 02:32] LABS: Baso # (Auto) 0.1 th/mm3 (0.0-0.2); Baso % (Auto) 0.9 % (0.0-2.0); Eos # (Auto) 0.6 th/mm3 (0.0-0.4); Eos % (Auto) 5.5 % (0.0-4.0); Hematocrit 44.7 % (39.0-51.0); Hemoglobin 15.2 gm/dL (13.0-17.0); Lymph # (Auto) 1.9 th/mm3 (1.0-4.8); Lymph % (Auto) 17.1 % (9.0-44.0); Mean Corpuscular Hemoglobin 30.4 pg (27.0-34.0); Mean Corpuscular Volume 89.4 fL (80.0-100.0); Mean Platelet Volume 8.8 fL (7.0-11.0); Mono # (Auto) 1.2 th/mm3 (0.0-0.9); Mono % (Auto) 10.6 % (0.0-8.0); Neut # (Auto) 7.1 th/mm3 (1.8-7.7); Neut % (Auto) 65.9 % (16.0-70.0); Platelet Count 182 th/mm3 (150-450); Red Cell Distribution Width 14.7 % (11.6-17.2); White Blood Count 10.8 th/mm3 (4.0-11.0)
[2018-04-21 02:51] LABS: Albumin 3.1 g/dL (3.4-5.0); Anion Gap 9 meq/L (5-15); Aspartate Aminotransferase 28 U/L (15-37); Blood Urea Nitrogen 20 mg/dL (7-18); Carbon Dioxide 28.8 meq/L (21.0-32.0); Chloride 103 meq/L (98-107); Glomerular Filtration Rate 55 mL/min (>89); Glucose,Random 129 mg/dL (74-106); Potassium 3.5 meq/L (3.5-5.1); Sodium 141 meq/L (136-145)
[2018-04-21] MEDS: Insulin NovoLOG Aspart Correctional Sugar Inj SQ SCH ×5 (02:52→20:52)
[2018-04-21 02:54] LABS: Alanine Aminotransferase 43 U/L (12-78); Alkaline Phosphatase 73 U/L (45-117)
[2018-04-21] MEDS: Heparin Drip 25,000 UNIT/250 ML BAG IV.CONT PRN (06:15)
[2018-04-21] MEDS: Carvedilol 6.25 MG Tablet PO SCH ×3 (10:51→21:02)
--- NOTE | 2018-04-21 12:37 | P.PNFP ---
Subjective Interval history: Mr. Linares had no acute events overnight; however, nursing staff reports that he got agitated yesterday evening when told he could not eat. Patient did get something to eat after his swallow study at the bedside was done by nursing. This morning it appears that he has some facial weakness that is residual. Patient became agitated again when told that we would have to hold his breakfast until another swallow study could be done. Swallow study revealed that patient can take a soft mechanical diet which was ordered. Patient is still having word finding difficulty. There appears to be no other neuro telemetry indicates patient had 2 runs of bradycardia overnight in the 46-49 range. There was no indication of atrial fibrillation. Patient's notes that he appears a little flushed this morning which is how he looks when he does not use his CPAP. Will order continuous pulse ox to assess for hypoxia. Patient stated when I was in room that he would not use CPAP even if his brought it in. Patient denies chest pain, shortness of breath, fever, chills, nausea, vomiting, diarrhea, and leg pain. <Pierce Robison III H - 04/21/18 12:36> Results - Labs Result diagrams: 04/22/18 04:28 04/22/18 04:28 <Noe Shah - 04/22/18 11:51> Abnormal lab results 04/21/18 04/21/18 04/21/18 Range/Units 12:27 12:38 19:30 [place] % (Auto) (0.0-8.0) % Eos % (Auto) (0.0-4.0) % [place] # (Auto) (0.0-0.9) th/mm3 Eos # (Auto) (0.0-0.4) th/mm3 APTT 42.7 H (23.4-31.7) sec Estimated GFR (>89) mL/min POC Glucose 149 H 138 H (68-110) mg/dl Random Glucose (74-106) mg/dL 04/22/18 04/22/18 Range/Units 04:28 04:28 [place] % (Auto) 11.5 H (0.0-8.0) % Eos % (Auto) 7.6 H (0.0-4.0) % [place] # (Auto) 1.1 H (0.0-0.9) th/mm3 Eos # (Auto) 0.7 H (0.0-0.4) th/mm3 APTT (23.4-31.7) sec Estimated GFR 66 L (>89) mL/min POC Glucose (68-110) mg/dl Random Glucose 118 H (74-106) mg/dL Short CBC 04/22/18 Range/Units 04:28 WBC 9.5 (4.0-11.0) th/mm3 Hgb 15.4 (13.0-17.0) gm/dL Hct 45.0 (39.0-51.0) % Plt Count 173 (150-450) th/mm3 BMP 04/22/18 04:28 Sodium 141 Potassium 3.6 Chloride 106 Carbon Dioxide 26.6 BUN 14 Creatinine 1.09 Calcium 9.0 <Noe Shah - 04/22/18 11:51> Abnormal lab results 04/20/18 04/20/18 04/20/18 Range/Units 10:00 16:30 20:11 [place] % (Auto) (0.0-8.0) % Eos % (Auto) (0.0-4.0) % [place] # (Auto) (0.0-0.9) th/mm3 Eos # (Auto) (0.0-0.4) th/mm3 APTT 38.3 H D 41.3 H (23.4-31.7) sec BUN (7-18) mg/dL Estimated GFR (>89) mL/min POC Glucose (68-110) mg/dl Random Glucose (74-106) mg/dL Albumin (3.4-5.0) g/dL Triglycerides 249 H (42-150) mg/dL 04/20/18 04/21/18 04/21/18 Range/Units 20:41 02:16 02:16 [place] % (Auto) 10.6 H (0.0-8.0) % Eos % (Auto) 5.5 H (0.0-4.0) % [place] # (Auto) 1.2 H (0.0-0.9) th/mm3 Eos # (Auto) 0.6 H (0.0-0.4) th/mm3 APTT (23.4-31.7) sec BUN 20 H (7-18) mg/dL Estimated GFR 55 L (>89) mL/min POC Glucose 174 H (68-110) mg/dl Random Glucose 129 H (74-106) mg/dL Albumin 3.1 L (3.4-5.0) g/dL Triglycerides (42-150) mg/dL 04/21/18 04/21/18 Range/Units 02:16 08:07 [place] % (Auto) (0.0-8.0) % Eos % (Auto) (0.0-4.0) % [place] # (Auto) (0.0-0.9) th/mm3 Eos # (Auto) (0.0-0.4) th/mm3 APTT 46.0 H (23.4-31.7) sec BUN (7-18) mg/dL Estimated GFR (>89) mL/min POC Glucose 192 H (68-110) mg/dl Random Glucose (74-106) mg/dL Albumin (3.4-5.0) g/dL Triglycerides (42-150) mg/dL Short CBC 04/20/18 04/21/18 Range/Units 16:30 02:16 WBC 10.3 10.8 (4.0-11.0) th/mm3 Hgb 15.3 15.2 (13.0-17.0) gm/dL Hct 44.9 44.7 (39.0-51.0) % Plt Count 179 182 (150-450) th/mm3 BMP 04/21/18 02:16 Sodium 141 Potassium 3.5 Chloride 103 Carbon Dioxide 28.8 BUN 20 H Creatinine 1.27 Calcium 9.0 Liver Function 04/21/18 Range/Units 02:16 Total Bilirubin 0.3 (0.2-1.0) mg/dL AST 28 (15-37) U/L ALT 43 (12-78) U/L Alkaline Phosphatase 73 (45-117) U/L Albumin 3.1 L (3.4-5.0) g/dL <Pierce Robison III H - 04/21/18 12:36> - Imaging Impressions Carotid Doppler Study 04/21/18 00:00 CONCLUSION: There is moderate to high-grade stenosis involving the left internal carotid artery bifurcation and the ICA to common carotid ratio measured 2.3 on the prior study. Head MRI 04/21/18 00:00 CONCLUSION: 1. Foci of acute infarction in the left frontal region. <Noe Shah - 04/22/18 11:51> Impressions Head MRI 04/20/18 00:00 CONCLUSION: 1. No evidence of acute infarct, hemorrhage, mass or edema 2. No evidence of enhancing lesions. Head CT 04/20/18 10:11 CONCLUSION: 1. Mild hypodense changes in the basal ganglia bilaterally which may represent chronic ischemic disease. 2. No characteristic findings of acute infarct, hemorrhage, mass or edema. 3. Aging brain with mild volume loss. Report given to ordering physician at 1021 Head CTA 04/20/18 10:11 CONCLUSION: 1. Partially occluding thrombus identified in a large M2 branch of the left middle cerebral artery at its bifurcation. 2. Overall decrease in vascularity in the left MCA distribution. 3. No evidence of ICA or M1 thrombi or occlusions. 4. Generalized atherosclerotic changes. 5. [id number] luminal irregularity and stenosis of the basilar artery. 6. High-grade stenosis with calcific deposits in the distal intracranial segment of the right vertebral artery. Report was called by [Dr. Glez to Dr. Timmons at 1055. Neck CTA 04/20/18 10:11 CONCLUSION: 1. Significant calcified plaque in the left carotid bifurcation with high- grade stenosis at the origin of the internal carotid artery measuring in the 50- 69% range. 2. No significant right carotid stenosis. 3. Dominant left vertebral artery. Carotid Doppler Study 04/21/18 00:00 CONCLUSION: There is moderate to high-grade stenosis involving the left internal carotid artery bifurcation and the ICA to common carotid ratio measured 2.3 on the prior study. <Pierce Robison III - 04/21/18 19:13> Physical Exam Vital signs: Vital Signs 04/21/18 12:01 04/21/18 12:30 04/21/18 13:02 Temperature Pulse Rate 65 66 Respiratory Rate 16 Blood Pressure Pulse Oximetry 97 97 04/21/18 16:00 04/21/18 16:34 04/21/18 17:07 Temperature Pulse Rate 64 64 62 Respiratory Rate 18 16 Blood Pressure 141/64 H Pulse Oximetry 97 97 96 04/21/18 18:08 04/21/18 18:17 04/21/18 20:00 Temperature 98.6 F Pulse Rate 63 59 L 71 Respiratory Rate 20 Blood Pressure 132/60 Pulse Oximetry 97 96 04/21/18 20:05 04/21/18 21:05 04/21/18 22:00 Temperature Pulse Rate 74 Respiratory Rate Blood Pressure Pulse Oximetry 98 95 04/21/18 23:15 04/22/18 00:00 04/22/18 01:15 Temperature 97.7 F Pulse Rate 60 Respiratory Rate 20 Blood Pressure 110/56 L Pulse Oximetry 97 97 96 04/22/18 02:13 04/22/18 03:20 04/22/18 04:12 Temperature 98.6 F Pulse Rate 61 Respiratory Rate 20 Blood Pressure 151/68 H Pulse Oximetry 97 96 97 04/22/18 05:20 04/22/18 06:15 04/22/18 07:20 Temperature 97.6 F Pulse Rate 60 Respiratory Rate 20 Blood Pressure 145/79 H Pulse Oximetry 95 97 97 04/22/18 09:00 Temperature Pulse Rate 79 Respiratory Rate Blood Pressure Pulse Oximetry Intake & Output 04/21/18 04/22/18 04/22/18 18:59 06:59 18:59 Intake Total 1000 / 1000 1490 / 1490 Output Total 525 / 525 500 / 500 Balance 475 / 475 990 / 990 Intake: IV 1000 / 1000 1250 / 1250 Heparin/D5W 25,000 U/250 mL 25, 250 / 250 000 unit In 250 ml @ Per Protocol IV.CONT TITRATE PRN Rx #:[id number] NS Inj 1,000 ML @ 70 mls/hr IV. 1000 / 1000 1000 / 1000 CONT .[id number] FORMERLY [facility] Rx#:[id number] Oral 240 / 240 Output: Urine 525 / 525 500 / 500 Other: # Voids 2 2 <Noe Shah - 04/22/18 11:51> Vital Signs 04/20/18 13:00 04/20/18 13:48 04/20/18 14:00 Temperature Pulse Rate 56 L 62 56 L Respiratory Rate 17 23 23 Blood Pressure 140/65 160/74 H 189/79 H Pulse Oximetry 97 96 99 04/20/18 15:00 04/20/18 16:45 04/20/18 20:00 Temperature 97.9 F 98.4 F Pulse Rate 62 60 64 Respiratory Rate 25 H 20 19 Blood Pressure 160/74 H 155/92 H 151/65 H Pulse Oximetry 98 99 95 04/20/18 20:41 04/21/18 00:00 04/21/18 03:29 Temperature 98.1 F 98.5 F Pulse Rate 66 60 57 L Respiratory Rate 17 19 Blood Pressure 158/67 H 143/66 H Pulse Oximetry 95 96 04/21/18 08:09 04/21/18 11:48 04/21/18 12:01 Temperature 98.2 F Pulse Rate 67 65 Respiratory Rate 18 Blood Pressure 148/68 H Pulse Oximetry 97 97 Intake & Output 04/20/18 04/21/18 04/21/18 18:59 06:59 18:59 Intake Total 1350 / 1350 Output Total 300 / 300 525 / 525 Balance -300 / -300 1350 / 1350 -525 / -525 Weight 110.8 kg Intake: IV 1250 / 1250 Heparin/D5W 25,000 U/250 mL 25, 250 / 250 000 unit In 250 ml @ Per Protocol IV.CONT TITRATE PRN Rx #:[id number] NS Inj 1,000 ML @ 70 mls/hr IV. 1000 / 1000 CONT .[id number] [facility] Rx#:[id number] Oral 100 / 100 Output: Urine 300 / 300 525 / 525 Other: # Voids 3 2 Weight On Admission 110.8 kg <Pierce Robison III - 04/21/18 12:36> Narrative: GENERAL: Obese 77 YO male lying in bed on his side and becomes agitated and starts demanding we leave the room when food is withheld. SKIN: Warm and dry. HEAD: Normocephalic. Atraumatic. MMM. EYES: No scleral icterus. No injection or drainage. EOMI/PERRLA. NECK: Supple, trachea midline. No JVD or lymphadenopathy. CARDIOVASCULAR: Regular rate and rhythm without murmurs, gallops, or rubs. RESPIRATORY: Breath sounds equal bilaterally. No accessory muscle use. GASTROINTESTINAL: Abdomen soft, non-tender, nondistended. Positive BS. MUSCULOSKELETAL: No cyanosis, or edema. Neurological: CN II-XII intact without deficit. Pt does have word finding difficulty. He can tell time from the clock on the wall. AOx3. Decreased sensation on right face, UE and LE. Normal motor function with 5/5 strength bilaterally. Normal visual mejia. <Pierce Robison III - 04/21/18 19:13> Assessment and Plan - Assessment (1) Transient ischemic attack (TIA) Code(s): G45.9 - Transient cerebral ischemic attack, unspecified Status: Acute (2) GERD (gastroesophageal reflux disease) Code(s): K21.9 - Gastro-esophageal reflux disease without esophagitis Status: Acute (3) Leaky heart valve Code(s): I38 - Endocarditis, valve unspecified Status: Acute (4) Gout Code(s): M10.9 - Gout, unspecified Status: Acute (5) Prediabetes Code(s): R73.03 - Prediabetes Status: Acute (6) Sleep apnea Code(s): G47.30 - Sleep apnea, unspecified Status: Acute (7) DVT prophylaxis Status: Acute (8) Nutrition, metabolism, and development symptoms Code(s): R63.8 - Other symptoms and signs concerning food and fluid intake Status: Acute <Noe Shah - 04/22/18 11:51> (1) Transient ischemic attack (TIA) Code(s): G45.9 - Transient cerebral ischemic attack, unspecified Status: Acute Plan: 77-year-old male with a transient ischemic attack who has a partially occluding thrombus in the left middle cerebral artery and left carotid stenosis of 50-69%. -Consult neurology appreciate recommendations -Cardiac telemetry to rule out A. fib (two runs of bradycardia at 46 and 48 bpm overnight; no afib) -Echocardiogram -MRI brain- NEGATIVE -Allow permissive hypertension -Consult vascular surgery appreciate recommendations -Consult physical therapy -Consult speech therapy Medications: -Continue atorvastatin -Continue heparin drip Laboratory: -Lipid panel * Triglycerides 249 * Cholesterol 144 * LDL cholesterol 54 * HDL cholesterol 40.5 - PT/INR WNL; elevated aPTT 2/2 Heparin - CBC WNL - BMP grossly WNL; pt has persistently elevated blood glucose to 192, not on steroids (2) GERD (gastroesophageal reflux disease) Code(s): K21.9 - Gastro-esophageal reflux disease without esophagitis Status: Acute Plan: -Hold home Nexium -Start pantoprazole 40 mg p.o. daily (3) Leaky heart valve Code(s): I38 - Endocarditis, valve unspecified Status: Acute Plan: BP 140s-150s/60s and allowing permissive HTN -Continue home carvedilol 6.25 mg p.o. twice daily -Hold home triamterene-hydrochlorothiazide (4) Gout Code(s): M10.9 - Gout, unspecified Status: Acute Plan: -Hold home Uloric and colchicine (5) Prediabetes Code(s): R73.03 - Prediabetes Status: Acute Plan: -Hold home dapagliflozin-saxagliptin -Start Low-dose sliding scale insulin -A1C pending (6) Sleep apnea Code(s): G47.30 - Sleep apnea, unspecified Status: Acute Plan: Patient has a CPAP at home but according to is noncompliant with CPAP. -monitor with pulse ox q1h (7) DVT prophylaxis Status: Acute Plan: -Patient is currently on heparin drip - Continue Plavix - Continue Aspirin 81 mg (8) Nutrition, metabolism, and development symptoms Code(s): R63.8 - Other symptoms and signs concerning food and fluid intake Status: Acute Plan: - NS @ 70 mls/hr - Patient passed nurse bedside swallow on 04/20 -Pt with some drooling from right side of mouth on 04/[address] eval with swallow study that he passed -Pt now on mechanical soft diet as recommended by ST Pt SDW Niurka Hernandez, and Tammie <Pierce Robison III - 04/21/18 19:06> - Attending Attestation See the residents documentation for details. I saw and evaluated the patient regarding the harrell portions of this evaluation and agree with the residents findings and plans as written. Parts of this note were created using [employer] voice recognition software program. While efforts were made to correct any mistakes made by this software, some mistakes, errors, and omissions may remain in the final note that were not caught when the note was originally created. Plan of care was discussed and agreed upon with the patient as specifically documented in the above note. An opportunity to ask questions with explanation was provided. Patient voiced understanding on all information reviewed and discussed. <Noe Shah - 04/22/18 11:49>
--- NOTE | 2018-04-21 12:51 | MP ---
cc: Kaz Carcamo MD DATE OF OPERATION: 04/21/2018 REFEREED BY: Kaz Dykes REASON FOR CONSULTATION: TIA/left carotid stenosis. HISTORY: This is a 77-year-old hypertensive prediabetic male with hyperlipidemia was awakened yesterday morning by his . When he rolled out of bed, he noticed a significant speech impediment. No motor or sensory deficit symptoms. plateman brought him to the emergency room where further investigation revealed evidence of acute thrombus within the M2 segment of left middle cerebral artery. CT scan showed only chronic changes. A CT angiogram question "50%-69% stenosis, left internal carotid artery." Echocardiogram and telemetry studies are in progress. During the ensuing 24 hours, his speech impediment has significantly improved. He continues without other lateralizing deficits. He has no prior history of TIA, cerebral infarction, syncope or seizure. PAST MEDICAL HISTORY: 1. Hypertension. 2. Hypercholesterolemia. 3. Prediabetes. 4. Sleep apnea. 5. "Leaky heart valve." 6. Gastroesophageal reflux disease. SURGICAL HISTORY: 1. Bilateral total knee arthroplasties. 2. Recent spinal surgery 3. Cataract surgery. 4. Tonsillectomy. MEDICATIONS: 1. Aspirin. 2. Plavix. 3. Colchicine. 4. Pravastatin. 5. Allopurinol. 6. Triamterene. 7. Carvedilol. 8. Coenzyme Q10. 9. Omeprazole. 10. Tramadol. 11. Tradjenta. 12. Hydrocodone p.r.n. ALLERGIES: PENICILLIN. PHYSICAL EXAMINATION: GENERAL: Well-developed, obese 77-year-old male who is alert and responds appropriately to questions and commands. Minimal dysarthria, but normal fluency. LUNGS: Symmetrically expanded and clear. CARDIOVASCULAR: Cardiac rhythm is sinus. NECK: Carotid upstrokes are brisk. No bruits. No neck vein distention or HJR. NEUROLOGIC: Well described by Kaz Dykes - No additions. I have reviewed the admission lab and radiographic studies. I reviewed the CT imaging of brain and carotid arteries with Arturo Adam, Neuro Radiologist. I fully agree with the recommendations by Kaz Dykes. We will await results of echocardiogram, telemetry and in the meantime continue the patient on therapeutic anticoagulation. Duplex ultrasound will be accomplished to more accurately delineate the character of the left carotid bifurcation plaque. Thank you for allowing me to participate in this gentleman's care. MD DARRION Fang/leno , 12:28 PM , 12:38 PM
--- NOTE | 2018-04-21 14:27 | US ---
EXAM DATE: 04/21/2018 2:08 PM EST AGE/SEX: 77 years / Male INDICATIONS: Carotid stenosis. Slurred speech. Abnormal CTA. CLINICAL DATA: This is the patient's initial encounter. Patient reports that signs and symptoms have been present for 2 days and indicates a pain score of 0/10. MEDICAL/SURGICAL HISTORY: Gastroesophageal reflux disease. Gout. Leaky heart valve. Gout. Sleep apnea. Prediabetes. Total knee replacement, left. Total knee replacement, right. Tonsillectomy. Hernia repair. Lumbar laminectomy. Cataract surgery. COMPARISON: [facility], CTA CAROTID ARTERIES, 01/28/2017. . VELOCITY PARAMETERS: ICA/CCA Ratio: Right 1.2 , Left 3.2 ICA: Right 114 cm/sec, Left 210 cm/sec CCA: Right 93 cm/sec, Left 66 cm/sec ECA: Right 204 cm/sec, Left 247 cm/sec Vertebral: Right 25 cm/sec antegrade, Left 82 cm/sec antegrade FINDINGS: Right Carotid: Moderate arteriosclerotic plaque is visualized.The waveforms are within normal limits . Left Carotid: There is moderate atelectatic plaquing at the origin of the left ICA and distal common carotid artery with moderate to high-grade stenosis based on the ratio measurement of velocities. The re is diminished flow within the right vertebral artery probably hypoplastic. Other: None. CONCLUSION: There is moderate to high-grade stenosis involving the left internal carotid artery bifur cation and the ICA to common carotid ratio measured 2.3 on the prior study. Electronically signed by: Kandi Freeman MD 04/21/2018 2:26 PM EST
--- NOTE | 2018-04-21 15:43 | ECHRPT ---
Indication: CVA/TIA CONCLUSIONS Mild concentric left ventricular hypertrophy. Normal left ventricular size. The left ventricular systolic function is normal with an estimated ejection fraction in the range of 55-60%. Trace mitral valve regurgitation. Moderate thickening/calcification of the aortic valve leaflets. The estimated pulmonary arterial pressure is 21 mmHg. There is trace tricuspid valve regurgitation. BP: / HR: Rhythm: MEASUREMENTS (Male / Female) Normal Values Technical Quality:Technically difficult study 2D ECHO LV Diastolic Diameter PLAX 4.5 cm 4.2 - 5.9 / 3.9 - 5.3 cm LV Systolic Diameter PLAX 3.2 cm IVS Diastolic Thickness 1.5 cm 0.6 - 1.0 / 0.6 - 0.9 cm LVPW Diastolic Thickness 1.1 cm 0.6 - 1.0 / 0.6 - 0.9 cm LV Relative Wall Thickness 0.6 RV Internal Dim ED PLAX 3.0 cm LVOT Diameter 1.9 cm Aortic Root Diameter 2.1 cm LA Systolic Diameter LX 3.6 cm 3.0 - 4.0 / 2.7 - 3.8 cm LV Ejection Fraction MOD 4C 46.0 % LV Ejection Fraction 4C AL 48.0 % LV Ejection Fraction MOD 2C 46.1 % LV Ejection Fraction 2C AL 49.2 % DOPPLER AV Peak Velocity 146.0 cm/s AV Peak Gradient 8.5 mmHg LVOT Peak Velocity 126.0 cm/s LVOT Peak Gradient 6.4 mmHg AV Area Cont Eq pk 2.4 cm Mitral E Point Velocity 50.3 cm/s Mitral A Point Velocity 70.6 cm/s Mitral E to A Ratio 0.7 LV E' Lateral Velocity 3.9 cm/s Mitral E to LV E' Lateral Ratio 12.9 LV E' Septal Velocity 4.8 cm/s Mitral E to LV E' Septal Ratio 10.5 TR Peak Velocity 164.0 cm/s TR Peak Gradient 10.8 mmHg Right Atrial Pressure 10.0 mmHg Pulmonary Artery Systolic Pressu 20.8 mmHg Right Ventricular Systolic Press 20.8 mmHg PV Peak Velocity 106.0 cm/s PV Peak Gradient 4.5 mmHg FINDINGS LEFT VENTRICLE Mild concentric left ventricular hypertrophy. Normal left ventricular size. The left ventricular systolic function is normal with an estimated ejection fraction in the range of 55-60%. RIGHT VENTRICLE Normal right ventricular size and systolic function. LEFT ATRIUM The left atrial size is normal. RIGHT ATRIUM The right atrial size is normal. ATRIAL SEPTUM Normal atrial septal thickness without atrial level shunting by limited color doppler interrogation. AORTA The aortic root and proximal ascending aorta are normal in size on limited imaging. MITRAL VALVE Trace mitral valve regurgitation. AORTIC VALVE Moderate thickening/calcification of the aortic valve leaflets. TRICUSPID VALVE The estimated pulmonary arterial pressure is 21 mmHg. There is trace tricuspid valve regurgitation. PULMONARY VALVE No pulmonary valve regurgitation or stenosis. VESSELS The inferior vena cava is normal in size. PERICARDIUM No pericardial effusion. Eugenio Mcdonald MD (Electronically Signed) Final Date:21 April 2018 15:42
--- NOTE | 2018-04-21 19:54 | P.PNNEU ---
Subjective Subjective Comments: pt relates some difficulty expressing words DR darling consult appreciated. Active Medications: Active Medications Al Hydroxide/Mg Hydroxide (Milk Of Magnesia Liq) 30 ml PO Q12H PRN PRN Reason: Mild Constipation Aspirin (Ecotrin) 81 mg PO DAILY [facility] Last Admin: 04/21/18 13:31 Dose: Not Given Atorvastatin Calcium (Lipitor) 40 mg PO DAILY [facility] Last Admin: 04/21/18 13:30 Dose: Not Given Bisacodyl (Dulcolax Supp) 10 mg RECTAL DAILY PRN PRN Reason: SEVERE CONSITIPATION Carvedilol (Coreg) 6.25 mg PO BID [facility] Last Admin: 04/21/18 13:31 Dose: Not Given Clopidogrel Bisulfate (Plavix) 75 mg PO DAILY [facility] Last Admin: 04/21/18 13:30 Dose: Not Given Dextrose (D50w Vial) 50 ml IV.PUSH UNSCH PRN PRN Reason: PER HYPOGLYCEMIA PROTOCOL Glucagon (Glucagon Inj) 1 mg OTHER PRN PRN PRN Reason: for Hypoglycemia Protocol Sodium Chloride (Ns Inj) 1,000 mls @ 70 mls/hr IV.CONT .[id number] [facility] Last Admin: 04/21/18 14:40 Dose: 70 mls/hr Heparin Sodium/Dextrose (Heparin/D5w 25,000 U/250 Ml) 25,000 unit in 250 mls @ 0 mls/hr IV.CONT TITRATE PRN; Protocol PRN Reason: Per Protocol Last Admin: 04/21/18 06:15 Dose: 1,300 units/hr, 13 mls/hr Insulin Aspart (Novolog Insulin Correctional Sugar Inj) 0 unit SQ ACHS AND 3AM [facility]; Protocol Last Admin: 04/21/18 19:34 Dose: Not Given Lactulose (Lactulose Liq) 30 ml PO DAILY PRN PRN Reason: SEVERE CONSITIPATION Pantoprazole Sodium (Protonix) 40 mg PO DAILY [facility] [place] Last Admin: 04/21/18 13:30 Dose: Not Given Sennosides (Senokot) 17.2 mg PO Q12H PRN PRN Reason: Moderate Constipation Allergies/Adverse Reactions: Allergies Allergy/AdvReac Type Severity Reaction Status Date / Time penicillin G Allergy Mild Hives Verified 04/20/18 10:41 Physical Exam Vital signs: Vital Signs 04/20/18 20:00 04/20/18 20:41 11/06/18 00:00 Temperature 98.4 F 98.1 F Pulse Rate 64 66 60 Respiratory Rate 19 17 Blood Pressure 151/65 H 158/67 H Pulse Oximetry 95 95 04/21/18 03:29 04/21/18 08:09 04/21/18 11:48 Temperature 98.5 F 98.2 F Pulse Rate 57 L 67 Respiratory Rate 19 18 Blood Pressure 143/66 H 148/68 H Pulse Oximetry 96 97 97 04/21/18 12:01 04/21/18 12:30 04/21/18 13:02 Temperature Pulse Rate 65 66 Respiratory Rate 16 Blood Pressure Pulse Oximetry 97 97 04/21/18 16:00 04/21/18 16:34 04/21/18 17:07 Temperature Pulse Rate 64 64 62 Respiratory Rate 18 16 Blood Pressure 141/64 H Pulse Oximetry 97 97 96 04/21/18 18:08 04/21/18 18:17 Temperature Pulse Rate 63 59 L Respiratory Rate Blood Pressure Pulse Oximetry 97 Intake & Output 04/21/18 04/21/18 04/22/18 06:59 18:59 06:59 Intake Total 1350 / 1350 1000 / 1000 Output Total 525 / 525 500 / 500 Balance 1350 / 1350 475 / 475 -500 / -500 Intake: IV 1250 / 1250 1000 / 1000 Heparin/D5W 25,000 U/250 mL 25, 250 / 250 000 unit In 250 ml @ Per Protocol IV.CONT TITRATE PRN Rx #:[id number] NS Inj 1,000 ML @ 70 mls/hr IV. 1000 / 1000 1000 / 1000 CONT .[id number] [facility] Rx#:[id number] Oral 100 / 100 Output: Urine 525 / 525 500 / 500 Other: # Voids 3 2 - Routine Neurological Exam alert, mild expressive difficulty CN intact MOTOR 5/5 BUE and BLE Objective Laboratory Results - last 24 hr 04/20/18 04/20/18 04/21/18 20:11 20:41 02:16 WBC 10.8 RBC 5.00 Hgb 15.2 Hct 44.7 MCV 89.4 MCH 30.4 MCHC 34.0 RDW 14.7 Plt Count 182 MPV 8.8 Neut % (Auto) 65.9 Lymph % (Auto) 17.1 [place] % (Auto) 10.6 H Eos % (Auto) 5.5 H Baso % (Auto) 0.9 Neut # (Auto) 7.1 Lymph # (Auto) 1.9 [place] # (Auto) 1.2 H Eos # (Auto) 0.6 H Baso # (Auto) 0.1 WBC Differential . Differential Comment Auto diff final APTT 41.3 H Sodium Potassium Chloride Carbon Dioxide Anion Gap BUN Creatinine Estimated GFR POC Glucose 174 H Random Glucose Calcium Total Bilirubin AST ALT Alkaline Phosphatase Total Protein Albumin 04/21/18 04/21/18 04/21/18 02:16 02:16 08:07 WBC RBC Hgb Hct MCV MCH MCHC RDW Plt Count MPV Neut % (Auto) Lymph % (Auto) [place] % (Auto) Eos % (Auto) Baso % (Auto) Neut # (Auto) Lymph # (Auto) [place] # (Auto) Eos # (Auto) Baso # (Auto) WBC Differential Differential Comment APTT 46.0 H Sodium 141 Potassium 3.5 Chloride 103 Carbon Dioxide 28.8 Anion Gap 9 BUN 20 H Creatinine 1.27 Estimated GFR 55 L POC Glucose 192 H Random Glucose 129 H Calcium 9.0 Total Bilirubin 0.3 AST 28 ALT 43 Alkaline Phosphatase 73 Total Protein 7.0 Albumin 3.1 L 04/21/18 04/21/18 04/21/18 12:27 12:38 19:30 WBC RBC Hgb Hct MCV MCH MCHC RDW Plt Count MPV Neut % (Auto) Lymph % (Auto) [place] % (Auto) Eos % (Auto) Baso % (Auto) Neut # (Auto) Lymph # (Auto) [place] # (Auto) Eos # (Auto) Baso # (Auto) WBC Differential Differential Comment APTT 42.7 H Sodium Potassium Chloride Carbon Dioxide Anion Gap BUN Creatinine Estimated GFR POC Glucose 149 H 138 H Random Glucose Calcium Total Bilirubin AST ALT Alkaline Phosphatase Total Protein Albumin Review/Management - Diagnosis (1) CVA (cerebral vascular accident) Code(s): I63.9 - Cerebral infarction, unspecified Status: Acute Current Visit: Yes (2) Transient ischemic attack (TIA) Code(s): G45.9 - Transient cerebral ischemic attack, unspecified Status: Acute Current Visit: Yes - Review/Management Plan: repeat MRI brain to assess for stroke given sx of expressive aphasia continue iv heparin. change to eliquis upon discharge. F/U with Dr Carcamo regarding left carotid stenosis
--- NOTE | 2018-04-21 20:50 | MR ---
EXAM DATE: 04/21/2018 8:44 PM EST AGE/SEX: 77 years / Male INDICATIONS: CVA. Patient was a stroke alert yesterday, 04/20/18. CLINICAL DATA: This is the patient's initial encounter. Patient reports that signs and symptoms have been present for 2 days and indicates a pain score of 1/10. MEDICAL/SURGICAL HISTORY: Hypertension. Diabetes mellitus type II. Tonsillectomy. Bilateral kn ee sx, Back sx. [place] [facility] [place] 04/20/2018. [facility] [place], 04/[place]/2018. [facility], CTA HEAD W CONTRAST W 3D, 04/20/2018. . TECHNIQUE: Multiplanar, multisequence examination of the brain was performed without contrast. FINDINGS: There is mild diffuse prominence of the CSF spaces, ventricles and cisterns. There are foci of acute infarction involving the left MCA territory in the left frontal subcortical there is corresponding mi ld increased FLAIR signal. Remote left frontal lacunar infarct. There is no evidence of intracranial hemorrhage or mass. White matter. CONCLUSION: 1. Foci of acute infarction in the left frontal region. Electronically signed by: Brandon Mckeon MD 04/21/2018 8:49 PM EST
[2018-04-22] MEDS: Heparin Drip 25,000 UNIT/250 ML BAG IV.CONT PRN (01:21)
[2018-04-22] MEDS: Insulin NovoLOG Aspart Correctional Sugar Inj SQ SCH ×3 (04:06→14:05)
[2018-04-22] MEDS: Sod Chloride 0.9% Inj 1,000 ML IV.CONT SCH (04:30)
[2018-04-22 05:24] LABS: Baso # (Auto) 0.1 th/mm3 (0.0-0.2); Eos # (Auto) 0.7 th/mm3 (0.0-0.4); Eos % (Auto) 7.6 % (0.0-4.0); Hemoglobin 15.4 gm/dL (13.0-17.0); Lymph # (Auto) 2.1 th/mm3 (1.0-4.8); Lymph % (Auto) 22.2 % (9.0-44.0); Mean Corpuscular HGB Conc 34.3 % (32.0-36.0); Mean Corpuscular Volume 90.3 fL (80.0-100.0); Mean Platelet Volume 9.1 fL (7.0-11.0); Mono # (Auto) 1.1 th/mm3 (0.0-0.9); Mono % (Auto) 11.5 % (0.0-8.0); Neut # (Auto) 5.5 th/mm3 (1.8-7.7); Neut % (Auto) 57.7 % (16.0-70.0); Platelet Count 173 th/mm3 (150-450); Red Blood Count 4.98 mil/mm3 (4.50-5.90); Red Cell Distribution Width 14.7 % (11.6-17.2); White Blood Count 9.5 th/mm3 (4.0-11.0)
[2018-04-22 05:50] LABS: Carbon Dioxide 26.6 meq/L (21.0-32.0); Potassium 3.6 meq/L (3.5-5.1)
[2018-04-22] MEDS: Carvedilol 6.25 MG Tablet PO SCH (10:08)
--- NOTE | 2018-04-22 13:59 | P.PNFP ---
Subjective Interval history: Mr. Linares had no acute events overnight. He slept well, is having no pain and there is no recurrence of symptoms. Drooling out of the right side of his mouth this morning, perhaps a little bit less word finding difficulty. Echo shows mild concentric left ventricular hypertrophy, normal LV size, LV systolic function normal with EF at 55-60%. There is trace MV regurg; moderate thickening/calcification of AV leaflets; PAP 21mmHg; trace TV regurg. We are waiting word from Dr. Carcamo about potential surgery for left carotid atherosclerosis and neurology. Denies chest pain, shortness of breath, fever, chills, dizziness, nausea, vomiting, diarrhea, headache, visual symptoms, leg pain. Nursing reports no abnormal events on telemetry overnight. <Pierce Robison III - 04/22/18 13:59> Results - Labs Result diagrams: 04/22/18 04:28 04/22/18 04:28 <Noe Shah - 04/24/18 15:36> Abnormal lab results 04/21/18 04/22/18 04/22/18 Range/Units 19:30 04:28 04:28 Haakon % (Auto) 11.5 H (0.0-8.0) % Eos % (Auto) 7.6 H (0.0-4.0) % Haakon # (Auto) 1.1 H (0.0-0.9) th/mm3 Eos # (Auto) 0.7 H (0.0-0.4) th/mm3 APTT (23.4-31.7) sec Estimated GFR 66 L (>89) mL/min POC Glucose 138 H (68-110) mg/dl Random Glucose 118 H (74-106) mg/dL 04/22/18 Range/Units 11:34 [place]ak[place] % (Auto) (0.0-8.0) % Eos % (Auto) (0.0-4.0) % Haakon # (Auto) (0.0-0.9) th/mm3 Eos # (Auto) (0.0-0.4) th/mm3 APTT 46.2 H (23.4-31.7) sec Estimated GFR (>89) mL/min POC Glucose (68-110) mg/dl Random Glucose (74-106) mg/dL Short CBC 04/22/18 Range/Units 04:28 WBC 9.5 (4.0-11.0) th/mm3 Hgb 15.4 (13.0-17.0) gm/dL Hct 45.0 (39.0-51.0) % Plt Count 173 (150-450) th/mm3 [facility] 04/22/18 04:28 Sodium 141 Potassium 3.6 Chloride 106 Carbon Dioxide 26.6 BUN 14 Creatinine 1.09 Calcium 9.0 <Pierce Robison III - 04/22/18 13:59> - Imaging Impressions Head CT 04/20/18 10:11 CONCLUSION: 1. Mild hypodense changes in the basal ganglia bilaterally which may represent chronic ischemic disease. 2. No characteristic findings of acute infarct, hemorrhage, mass or edema. 3. Aging brain with mild volume loss. Report given to ordering physician at 1021 Head CTA 04/20/18 10:11 CONCLUSION: 1. Partially occluding thrombus identified in a large M2 branch of the left middle cerebral artery at its bifurcation. 2. Overall decrease in vascularity in the left MCA distribution. 3. No evidence of ICA or M1 thrombi or occlusions. 4. Generalized atherosclerotic changes. 5. Jbrq-[id number] luminal irregularity and stenosis of the basilar artery. 6. High-grade stenosis with calcific deposits in the distal intracranial segment of the right vertebral artery. Report was called by [Dr. Glez to Dr. Timmons at 1055. Neck CTA 04/20/18 10:11 CONCLUSION: 1. Significant calcified plaque in the left carotid bifurcation with high- grade stenosis at the origin of the internal carotid artery measuring in the 50- 69% range. 2. No significant right carotid stenosis. 3. Dominant left vertebral artery. Carotid Doppler Study 04/21/18 00:00 CONCLUSION: There is moderate to high-grade stenosis involving the left internal carotid artery bifurcation and the ICA to common carotid ratio measured 2.3 on the prior study. Head MRI 04/21/18 00:00 CONCLUSION: 1. Foci of acute infarction in the left frontal region. <Ricki VEGASPierce - 04/22/18 13:59> Physical Exam Vital signs: Vital Signs 04/21/18 16:00 04/21/18 16:34 04/21/18 17:07 Temperature Pulse Rate 64 64 62 Respiratory Rate 18 16 Blood Pressure 141/64 H Pulse Oximetry 97 97 96 04/21/18 18:08 04/21/18 18:17 04/21/18 20:00 Temperature 98.6 F Pulse Rate 63 59 L 71 Respiratory Rate 20 Blood Pressure 132/60 Pulse Oximetry 97 96 04/21/18 20:05 04/21/18 21:05 04/21/18 22:00 Temperature Pulse Rate 74 Respiratory Rate Blood Pressure Pulse Oximetry 98 95 04/21/18 23:15 04/22/18 00:00 04/22/18 01:15 Temperature 97.7 F Pulse Rate 60 Respiratory Rate 20 Blood Pressure 110/56 L Pulse Oximetry 97 97 96 04/22/18 02:13 04/22/18 03:20 04/22/18 04:12 Temperature 98.6 F Pulse Rate 61 Respiratory Rate 20 Blood Pressure 151/68 H Pulse Oximetry 97 96 97 04/22/18 05:20 04/22/18 06:15 04/22/18 07:20 Temperature 97.6 F Pulse Rate 60 Respiratory Rate 20 Blood Pressure 145/79 H Pulse Oximetry 95 97 97 04/22/18 09:00 04/22/18 12:00 Temperature 97.5 F L Pulse Rate 79 59 L Respiratory Rate 16 Blood Pressure 146/53 H Pulse Oximetry 96 Intake & Output 04/21/18 04/22/18 04/22/18 18:59 06:59 18:59 Intake Total 1000 / 1000 1490 / 1490 Output Total 525 / 525 500 / 500 Balance 475 / 475 990 / 990 Intake: IV 1000 / 1000 1250 / 1250 Heparin/D5W 25,000 U/250 mL 25, 250 / 250 000 unit In 250 ml @ Per Protocol IV.CONT TITRATE PRN Rx #:[id number] NS Inj 1,000 ML @ 70 mls/hr IV. 1000 / 1000 1000 / 1000 CONT .[id number] [facility] Rx#:[id number] Oral 240 / 240 Output: Urine 525 / 525 500 / 500 Other: # Voids 2 2 <Ricki IIIPierce H - 04/22/18 13:59> Narrative: GENERAL: Obese 77 YO male lying in bed on his side. SKIN: Warm and dry. No lesions or rash. HEAD: Normocephalic. Atraumatic. MMM. EYES: No scleral icterus. No injection or drainage. EOMI/PERRLA. NECK: Supple, trachea midline. No JVD or lymphadenopathy. CARDIOVASCULAR: Regular rate and rhythm without murmurs, gallops, or rubs. RESPIRATORY: Breath sounds equal bilaterally. No accessory muscle use. GASTROINTESTINAL: Abdomen soft, non-tender, nondistended. Positive BS. MUSCULOSKELETAL: No cyanosis, or edema. Neurological: CN II-XII intact with minor deficit in residual drooling from right side of mouth. Pt does have word finding difficulty, perhaps improved since yesterday. AOx3. Decreased sensation on right face, UE and LE. Normal motor function with 5/5 strength bilaterally. Normal visual mejia. <Pierce Robison III - 04/22/18 13:59> Assessment and Plan - Assessment (1) Transient ischemic attack (TIA) Code(s): G45.9 - Transient cerebral ischemic attack, unspecified Status: Acute (2) GERD (gastroesophageal reflux disease) Code(s): K21.9 - Gastro-esophageal reflux disease without esophagitis Status: Acute (3) Leaky heart valve Code(s): I38 - Endocarditis, valve unspecified Status: Acute (4) Gout Code(s): M10.9 - Gout, unspecified Status: Acute (5) Prediabetes Code(s): R73.03 - Prediabetes Status: Acute (6) Sleep apnea Code(s): G47.30 - Sleep apnea, unspecified Status: Acute (7) DVT prophylaxis Status: Acute (8) Nutrition, metabolism, and development symptoms Code(s): R63.8 - Other symptoms and signs concerning food and fluid intake Status: Acute <Noe Shah - 04/24/18 15:36> (1) Transient ischemic attack (TIA) Code(s): G45.9 - Transient cerebral ischemic attack, unspecified Status: Acute Plan: 77-year-old male with a TIA who has a partially occluding thrombus in the left middle cerebral artery and left carotid stenosis of 50-69%. -Consult neurology appreciate recommendations -Cardiac telemetry to rule out A. fib (two runs of bradycardia at 46 and 48 bpm on 04/21; no afib) -Echocardiogram with mild concentric left ventricular hypertrophy, normal LV size, LV systolic function normal with EF at 55-60%. There is trace MV regurg; moderate thickening/calcification of AV leaflets; PAP 21mmHg; trace TV regurg. -MRI brain 04/20 - NEGATIVE -Repeat MRI brain 04/21 showing foci of acute infarction in the left frontal region US of LEs pending -Allow permissive hypertension -Consult vascular surgery appreciate recommendations -Consult physical therapy -Consult speech therapy Medications: -Continue atorvastatin -Continue heparin drip Laboratory: -Lipid panel * Triglycerides 249 * Cholesterol 144 * LDL cholesterol 54 * HDL cholesterol 40.5 - PT/INR WNL; elevated aPTT 2/2 Heparin - CBC WNL - BMP grossly WNL; pt has persistently elevated blood glucose, not on steroids (2) GERD (gastroesophageal reflux disease) Code(s): K21.9 - Gastro-esophageal reflux disease without esophagitis Status: Acute Plan: -Hold home Nexium -Start pantoprazole 40 mg p.o. daily (3) Leaky heart valve Code(s): I38 - Endocarditis, valve unspecified Status: Acute Plan: BP 140s-150s/56-79 and allowing permissive HTN -Continue home carvedilol 6.25 mg p.o. twice daily -Hold home triamterene-hydrochlorothiazide (4) Gout Code(s): M10.9 - Gout, unspecified Status: Acute Plan: -Hold home Uloric and colchicine (5) Prediabetes Code(s): R73.03 - Prediabetes Status: Acute Plan: -Hold home dapagliflozin-saxagliptin -Start Low-dose sliding scale insulin; 1 unit given 04/21 at 10:51 -A1C pending (6) Sleep apnea Code(s): G47.30 - Sleep apnea, unspecified Status: Acute Plan: Patient has a CPAP at home but according to is noncompliant with CPAP. -monitor with pulse ox q1h; 95-97% on RA (7) DVT prophylaxis Status: Acute Plan: -Patient is currently on heparin drip -Per neurology, will start pt on Eliquis at discharge - Continue Plavix - Continue Aspirin 81 mg (8) Nutrition, metabolism, and development symptoms Code(s): R63.8 - Other symptoms and signs concerning food and fluid intake Status: Acute Plan: - NS @ 70 mls/hr - Patient passed nurse bedside swallow on 04/20 -Pt with some drooling from right side of mouth on 04/[address] eval with swallow study that he passed -Pt now on mechanical soft diet as recommended by ST Dispo: pt will get HHPT Pt SDW Ruthie Shah and KLARISSA Cho <Sujeykarina ASCENCIONPierce - 04/22/18 13:39> - Attending Attestation See the residents documentation for details. I saw and evaluated the patient regarding the harrell portions of this evaluation and agree with the residents findings and plans as written. Parts of this note were created using [employer] voice recognition software program. While efforts were made to correct any mistakes made by this software, some mistakes, errors, and omissions may remain in the final note that were not caught when the note was originally created. Plan of care was discussed and agreed upon with the patient as specifically documented in the above note. An opportunity to ask questions with explanation was provided. Patient voiced understanding on all information reviewed and discussed. <Noe Shah - 04/24/18 15:36>
[2018-04-22 15:29] VITALS: BP 192/84; PULSE 70; RESP 20; TEMP 97.8; O2SAT 98
--- NOTE | 2018-04-22 15:42 | P.DCO ---
- Physical Therapy Order: Evaluate and treat - Occupational Therapy Order: Evaluate and treat - Speech Therapy Order: To improve: Speech and communication skills, Cognitive skills, Swallowing - Home Health Nursing Order: Medical education, Signs/symptoms of disease process, Diabetic education , Medication education-adverse effect - Case Management Consult Yes - Certification I have seen patient Lance Linares on 04/22/18. My clinical findings support the need for the requested home health care services because: Limited mobility due to disease progression, Deconditioned with increased weakness, Medication compliance is questionable, Limited ability to care for self, Need for psychosocial assistance, Impaired cognition/judgement, High risk of falls I certify that my clinical findings support that this patient is homebound because: Pt has had a cerebrovascular accident with residual speech deficits and has limited mobility and questionable medical compliance. Pt's needs assistance in his care. Impaired cognitive ability/safety, Unsteady gait/balance, Need for psychosocial assistance Attestation/Additional Detail: Patient suffered a cerebrovascular accident with residual speech deficits and now dietary modifications requiring mechanical soft diet. Patient needs assistance to increase his mobility and strength following the CVA. He also needs assistance in teaching him to care for himself as he has poor insight into his medical conditions.
--- NOTE | 2018-04-22 16:44 | US ---
EXAM DATE: 04/22/2018 4:37 PM EST AGE/SEX: 77 years / Male INDICATIONS: Swelling. CLINICAL DATA: This is the patient's initial encounter. Patient reports that signs and symptoms have been present for 1 day and indicates a pain score of 0/10. MEDICAL/SURGICAL HISTORY: Gastroesophageal reflux disease. Leaky heart valve. Sleep apnea. Go ut. . Hernia repair. Total right and left knee replacement. Cataract surgery. Tonsillectomy. Linda k surgery. COMPARISON: No prior exams available for comparison. TECHNIQUE: Venous ultrasound of both lower extremities was performed from the inguinal ligament to t he proximal calf. Real-time, color Doppler and spectral tracing, compression and augmentation techni ques were used. FINDINGS: Right Leg: Normal compression of the deep venous system from the inguinal region to the proximal shira f. No echogenic clot is seen. Normal response of the venous system to augmentation and respiration. Left Leg: Normal compression of the deep venous system from the inguinal region to the proximal calf . No echogenic clot is seen. Normal response of the venous system to augmentation and respiration. Other: None. CONCLUSION: The study is negative for bilateral lower extremity deep venous thrombosis. Electronically signed by: Van Glez MD 04/22/2018 4:42 PM EST
[2018-04-22 20:11] LABS: Hemoglobin A1c 7.1 % (4.3-6.0)
== END 2018-04-22 18:38 | disposition home health service (06) ==
LOC: NEPC 09:57 → NEDA 13:57 → NEPFCDU 15:13 → NEDA 15:24
PROVIDERS: ADMIT Family Medicine; ATTEND Family Medicine